=== PATIENT | male | born 1970 | race Caucasian/White ===

== ENCOUNTER 2018-11-16 20:14 | Emergency (ER) | payer BC, SELFPAY ==
[2018-11-16] MEDS ORDERED: IBUPROFEN 400 MG TAB ONE (20:35)
[2018-11-16] MEDS ORDERED: HYDROCODONE/APAP 5/325 MG TAB ONE (20:35)
--- NOTE | 2018-11-16 21:33 | ER ---
[facility] Name: Nabil Aleman Age: 48 yrs Sex: Male : 1970 Arrival Date: 11/16/2018 Time: 20:16 Bed 20 Private MD: Diagnosis: Pain in left ankle and joints of left foot Presentation: 11/16 20:21 Presenting complaint: Patient states: Was at grocery store and went to grab item off of 1 shelf, 6 pack of beer fell on top of left foot; increased pain and swelling; unable to bear weight. Transition of care: patient was not received from another setting of care. Onset of symptoms was November 16, 2018 at 15:00. Risk Assessment: Do you want to hurt yourself or someone else? Patient reports no desire to harm self or others. Initial Sepsis Screen: Does the patient meet any 2 criteria? No. Patient's initial sepsis screen is negative. Does the patient have a suspected source of infection? No. Patient's initial sepsis screen is negative. Care prior to arrival: None. 20:21 Method Of Arrival: Wheelchair lp1 20:21 Acuity: SINDI 4 lp1 Historical: - Allergies: 20:24 No Known Allergies; lp1 - Home Meds: 20:24 Albuterol Inhl [Active]; lp1 - PMHx: 20:24 COPD; lp1 - PSHx: 20:24 Hernia repair; lp1 - Immunization history:: Adult Immunizations up to date. - Social history:: Smoking status: Patient uses tobacco products, smokes one-half pack cigarettes per day. - Ebola Screening: : No symptoms or risks identified at this time. Screenin:25 Abuse screen: Denies threats or abuse. Denies injuries from another. Nutritional lp1 screening: No deficits noted. Tuberculosis screening: No symptoms or risk factors identified. Fall Risk None identified. Assessment: 20:35 General: Appears in no apparent distress. comfortable, Behavior is calm, cooperative, aa1 appropriate for age. Pain: Complains of pain in left foot Quality of pain is described as shooting, throbbing, Is continuous, Aggravated by weight bearing. Neuro: Level of Consciousness is awake, alert, obeys commands, Oriented to person, place, time, situation, Moves all extremities. Full function Gait is steady. Cardiovascular: Pulses are 3+ in right dorsalis pedis artery and left dorsalis pedis artery. Respiratory: Airway is patent Respiratory effort is even, unlabored, Respiratory pattern is regular, symmetrical. GI: No signs and/or symptoms were reported involving the gastrointestinal system. : No signs and/or symptoms were reported regarding the genitourinary system. EENT: No signs and/or symptoms were reported regarding the EENT system. Derm: Skin is intact, is healthy with good turgor, Skin is pink, warm \T\ dry. Musculoskeletal: Circulation, motion, and sensation intact. Capillary refill < 3 seconds, Range of motion: intact in all extremities. 21:08 Reassessment: Patient appears in no apparent distress at this time. Patient and/or aa1 family updated on plan of care and expected duration. Pain level reassessed. Patient is alert, oriented x 3, equal unlabored respirations, skin warm/dry/pink. Awaiting x-ray results. 21:59 Reassessment: Patient appears in no apparent distress at this time. Patient is alert, aa1 oriented x 3, equal unlabored respirations, skin warm/dry/pink. Discussed d/c \T\ f/u instructions with pt; denies questions or concerns at this time. Ambulates to lobby with steady gait Patient states symptoms have improved. Vital Signs: 20:23 BP 108 / 71; Pulse 99; Resp 18; Temp 98.1(O); Pulse Ox 95% on R/A; Weight 99.79 kg; lp1 Height 6 ft. 0 in. (182.88 cm); Pain 8/10; 21:08 BP 110 / 70; Pulse 92; Resp 19; Pulse Ox 94% on R/A; Pain 7/10; aa1 21:59 BP 105 / 72; Pulse 94; Resp 18; Temp 98.3; Pulse Ox 95% on R/A; Pain 6/10; aa1 20:23 Body Mass Index 29.84 (99.79 kg, 182.88 cm) lp1 ED Course: 20:16 Patient arrived in ED. ag3 20:17 Faraz Larson MD is Attending Physician. pkl 20:18 Gerardo Ochoa PA is PHCP. cp 20:23 Triage completed. lp1 20:23 Arm band placed on left wrist. lp1 20:25 Patient has correct armband on for positive identification. lp1 20:28 Vianey Acevedo, RN is Primary Nurse. aa1 21:01 XRAY Foot LEFT 3 View In Process Unspecified. EDMS 21:01 XRAY Ankle LEFT 3 view In Process Unspecified. EDMS 21:59 No provider procedures requiring assistance completed. Patient did not have IV access aa1 during this emergency room visit. 21:59 Ortho shoe applied to left foot. aa1 Administered Medications: 20:41 Drug: Ibuprofen 800 mg Route: PO; aa1 21:41 Follow up: Response: No adverse reaction; Pain is decreased aa1 20:42 Drug: HYDROcodone-acetaminophen (5 mg-500 mg) 1 tabs {Note: RASS 0.} Route: PO; aa1 21:41 Follow up: Response: No adverse reaction; Pain is decreased; RASS: Alert and Calm (0) aa1 Outcome: 21:32 Discharge ordered by . cp 21:59 Discharged to home ambulatory, with significant other. aa1 21:59 Condition: good 21:59 Discharge instructions given to patient, significant other, Instructed on discharge instructions, follow up and referral plans. medication usage, Demonstrated understanding of instructions, follow-up care, medications, Prescriptions given X 2. 22:00 Patient left the ED. aa1 Signatures: Dispatcher [employer] EDNC Vianey Acevedo, JUAN RN aa1 Faraz Larson MD MD pkl Pena, Laura, RN RN lp1 Gerardo Ochoa PA PA cp Gomez, Alice ag3
--- NOTE | 2018-11-16 21:33 | EDPHYS ---
Physician Documentation [facility] Name: Nabil Aleman Age: 48 yrs Sex: Male : 1970 Arrival Date: 11/16/2018 Time: 20:16 Bed 20 Private MD: ED Physician Faraz Larson HPI: 11/16 20:25 This 48 yrs old Male presents to ER via Wheelchair with complaints of Foot cp Injury. 20:25 The patient presents with an injury, pain, that is acute. cp 20:25 The complaints affect the anterior aspect of left ankle and dorsum of left foot. cp Context: The problem was sustained at a store, resulted from a direct blow, 6 pack of beer fell from shelf onto ankle and foot, the patient is not able to bear weight, must have assistance. Onset: The symptoms/episode began/occurred today. Associated signs and symptoms: Pertinent negatives numbness, tingling. Historical: - Allergies: 20:24 No Known Allergies; lp1 - Home Meds: 20:24 Albuterol Inhl [Active]; lp1 - PMHx: 20:24 COPD; lp1 - PSHx: 20:24 Hernia repair; lp1 - Immunization history:: Adult Immunizations up to date. - Social history:: Smoking status: Patient uses tobacco products, smokes one-half pack cigarettes per day. - Ebola Screening: : No symptoms or risks identified at this time. ROS: 20:30 Constitutional: Negative for body aches, chills, fever. cp 20:30 Eyes: Negative for injury, pain, redness, and discharge. cp 20:30 Cardiovascular: Negative for chest pain. 20:30 Respiratory: Negative for cough, shortness of breath, wheezing. 20:30 Abdomen/GI: Negative for abdominal pain, nausea, vomiting, and diarrhea. 20:30 MS/extremity: Positive for pain, tenderness, of the dorsum of left foot and anterior aspect of left ankle, Negative for decreased range of motion, deformity, paresthesias. 20:30 All other systems are negative. Exam: 20:40 Constitutional: The patient appears in no acute distress, alert, awake, well developed, cp well nourished. 20:40 Head/Face: Normocephalic, atraumatic. cp 20:40 Musculoskeletal/extremity: Extremities: grossly normal except: noted in the dorsum of left foot and anterior aspect of left ankle: pain, tenderness, mild swelling, Perfusion: the extremity is normally perfused throughout, Sensation intact. 20:40 Skin: intact w/o open wounds. Vital Signs: 20:23 BP 108 / 71; Pulse 99; Resp 18; Temp 98.1(O); Pulse Ox 95% on R/A; Weight 99.79 kg; lp1 Height 6 ft. 0 in. (182.88 cm); Pain 8/10; 21:08 BP 110 / 70; Pulse 92; Resp 19; Pulse Ox 94% on R/A; Pain 7/10; aa1 21:59 BP 105 / 72; Pulse 94; Resp 18; Temp 98.3; Pulse Ox 95% on R/A; Pain 6/10; aa1 20:23 Body Mass Index 29.84 (99.79 kg, 182.88 cm) lp1 MDM: 20:18 Patient medically screened. pkl 20:45 Differential diagnosis: dislocation, closed fracture, contusion. cp 21:25 Test interpretation: by ED physician or midlevel provider: xrays of left ankle negative cp for fracture, xrays of left foot negative for fracture. 21:31 Data reviewed: vital signs, nurses notes, radiologic studies, plain films, and as a cp result, I will discharge patient. 11/16 20:36 Order name: XRAY Foot LEFT 3 View cp 11/16 20:36 Order name: XRAY Ankle LEFT 3 view cp 11/16 21:25 Order name: Post-op shoe; Complete Time: 21:57 cp Administered Medications: 20:41 Drug: Ibuprofen 800 mg Route: PO; aa1 21:41 Follow up: Response: No adverse reaction; Pain is decreased aa1 20:42 Drug: HYDROcodone-acetaminophen (5 mg-500 mg) 1 tabs {Note: RASS 0.} Route: PO; aa1 21:41 Follow up: Response: No adverse reaction; Pain is decreased; RASS: Alert and Calm (0) aa1 Disposition: 23:50 Co-signature as Attending Physician, Faraz Larson MD. pkl Disposition: 11/16/18 21:32 Discharged to Home. Impression: Pain in left ankle and joints of left foot. - Condition is Stable. - Discharge Instructions: Elastic Bandage and RICE, Ankle Pain, Foot Pain. - Prescriptions for Naprosyn 500 mg Oral Tablet - take 1 tablet by ORAL route 2 times per day take with food; 20 tablet. Tramadol 50 mg Oral Tablet - take 1 tablet by ORAL route every 8 hours as needed; 12 tablet. - Medication Reconciliation Form, Thank You Letter, Antibiotic Education, Prescription Opioid Use form. - Follow up: Private Physician; When: 2 - 3 days; Reason: Recheck today's complaints. - Problem is new. - Symptoms have improved. Signatures: Dispatcher [employer] EDVianey Cid RN RN aa1 Faraz Larson MD MD pkl Kathy Ling RN RN lp1 Gerardo Ochoa PA PA cp Corrections: (The following items were deleted from the chart) 21:57 21:25 Crutches ordered. cp aa1 22:00 21:32 11/16/2018 21:32 Discharged to Home. Impression: Pain in left ankle and joints of aa1 left foot. Condition is Stable. Forms are Medication Reconciliation Form, Thank You Letter, Antibiotic Education, Prescription Opioid Use. Follow up: Private Physician; When: 2 - 3 days; Reason: Recheck today's complaints. Problem is new. Symptoms have improved. cp
[2018-11-16 22:49] VITALS: BP 105/72; TEMP 98.3; O2SAT 95
--- NOTE | 2018-11-17 07:42 | RAD REPORT ---
EXAM DESCRIPTION: RAD - Ankle Left 3 View -11/16/2018 9:01 pm CLINICAL HISTORY: Left ankle pain status post injury FINDINGS: No fracture or dislocation is seen.
--- NOTE | 2018-11-17 07:43 | RAD REPORT ---
EXAM DESCRIPTION: RAD - Foot Left 3 View - 11/16/2018 9:01 pm CLINICAL HISTORY: Left Foot pain status post fall FINDINGS: No fracture or dislocation is seen. Moderate plantar calcaneal spur
== END 2018-11-16 22:00 | disposition home or self-care (01) ==
LOC: ER 20:14
DX: M25.572 Pain in left ankle and joints of left foot (principal); J44.9 Chronic obstructive pulmonary disease, unspecified; F17.210 Nicotine dependence, cigarettes, uncomplicated
CPT/HCPCS: 99284

== ENCOUNTER 2020-02-04 10:24 | Emergency (ER) | payer SELFPAY ==
[2020-02-04 11:14] LABS: Absolute Lymphocytes (CBC) 1.3 K/uL (0.7-4.9); Basophils % 0.7 % (0-1.3); Hematocrit 43.4 % (39.6-49.0); Lymphocytes % 21.6 % (15.3-44.8); MPV 8.1 fL (7.6-11.3); RBC Red Blood Cell Count 4.25 M/uL (4.33-5.43)
[2020-02-04] MEDS ORDERED: MORPHINE 4 MG/ML SYR ONE (11:25)
[2020-02-04 11:31] LABS: BUN Blood Urea Nitrogen 9 mg/dL (7-18); Bicarbonate 28 mmol/L (21-32); Glucose Level 108 mg/dL (74-106); NT PRO-BNP 12 pg/mL (<125); Potassium 4.1 mmol/L (3.5-5.1); Sodium Level 138 mmol/L (136-145); Troponin (Emerg Dept Use Only) < 0.02 ng/mL (0.0-0.045)
--- NOTE | 2020-02-04 11:36 | RAD REPORT ---
EXAM DESCRIPTION: RAD - Chest Single View - 02/04/2020 11:25 am CLINICAL HISTORY: Chest pain;Cough Chest pain. COMPARISON: Chest Pa And Lat (2 Views) dated 03/24/2018; Chest Pa And Lat (2 Views) dated 01/22/2017; Chest Single View dated 05/08/2016; Chest Pa And Lat (2 Views) dated 05/07/2016 FINDINGS: Portable technique limits examination quality. The lungs are grossly clear. The heart is normal in size. No displaced fractures. IMPRESSION: No acute intrathoracic process suspected.
--- NOTE | 2020-02-04 12:45 | RAD REPORT ---
EXAM DESCRIPTION: CT - Angio Aorta For Dissection - 02/04/2020 12:34 pm CLINICAL HISTORY: Chest pain radiating to the back. chest pain, HTN COMPARISON: No comparisons TECHNIQUE: CT angiography of the aorta was performed with MIPs. All CT scans are performed using dose optimization technique as appropriate and may include automated exposure control or mA/KV adjustment according to patient size. FINDINGS: A left aortic arch is present with normal branching pattern of the great vessels.No acute aortic finding is seen such as aneurysm, penetrating ulcer or dissection. The celiac axis, SMA, JUANI and renal arteries are patent. No evidence of pulmonary embolism. Lung apices were not included. The visualized portions of the lungs are clear. The liver demonstrates no focal mass or biliary dilatation.The spleen, pancreas, adrenal glands and k idneys are within normal limits for arterial phase imaging. No bowel obstruction, free fluid or abscess.Mild sigmoid diverticulosis without diverticulitis. Kimberlyn l appendix.No pathologic enlarged lymphadenopathy identified. No fracture or worrisome bone lesion seen.Small fat containing left inguinal hernia. IMPRESSION: No acute aortic finding is demonstrated.
[2020-02-04] MEDS ORDERED: MEPERIDINE HCL 50 MG/ML ONE (12:46)
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
--- NOTE | 2020-02-04 12:59 | ER ---
Nurse's Notes [facility] Name: Nabil Aleman Age: 49 yrs Sex: Male : 1970 Arrival Date: 02/04/2020 Time: 10: Bed 8 Private MD: Diagnosis: Chest pain, unspecified Presentation: 02/03 10:27 Chief complaint: Left-sided chest pain and left subscapular pain that began 2 weeks aa5 ago. Pt also reports productive cough and chills. Pt also states "my blood pressure has also been running high like around 149/99 for the last week". 10:27 Coronavirus screen: chills, cough unrelated to allergies, Client presents with at least aa5 one sign or symptom that may indicate coronavirus-19. Standard/surgical mask placed on the client. Provider contacted for isolation considerations. Ebola Screen: Patient negative for fever greater than or equal to 101.5 degrees Fahrenheit, and additional compatible Ebola Virus Disease symptoms. Initial Sepsis Screen: Does the patient meet any 2 criteria? No. Patient's initial sepsis screen is negative. Does the patient have a suspected source of infection? Yes: Productive cough/pneumonia. Risk Assessment: Do you want to hurt yourself or someone else? Patient reports no desire to harm self or others. Onset of symptoms was 2019. 10:27 Acuity: SINDI 3 aa5 10:27 Method Of Arrival: Ambulatory aa5 Historical: - Allergies: 10:43 No Known Allergies; aa5 - Home Meds: 10:43 Albuterol Inhl [Active]; aspirin 81 mg Oral chew 1 tab once daily [Active]; montelukast aa5 10 mg oral tab once daily [Active]; 10:43 Trelegy [Active]; aa5 - PMHx: 10:43 COPD; aa5 - PSHx: 10:43 Hernia repair; aa5 - Immunization history:: Flu vaccine is not up to date. - Social history:: Smoking status: Patient reports the use of cigarette tobacco products, smokes one-half pack cigarettes per day. - Family history:: not pertinent. - Hospitalizations: : No recent hospitalization is reported. Screenin:07 Abuse screen: Denies threats or abuse. Nutritional screening: No deficits noted. aa5 Tuberculosis screening: No symptoms or risk factors identified. Fall Risk None identified. Assessment: 10:27 General: Appears comfortable, Behavior is calm, cooperative. Pain: Complains of pain in aa5 anterior aspect of left upper chest and subscapular area Pain does not radiate. Pain currently is 8 out of 10 on a pain scale. Quality of pain is described as sharp, Pain began 2 weeks ago Is intermittent, Aggravated by coughing. Neuro: Level of Consciousness is awake, alert, obeys commands, Oriented to person, place, time, situation. Cardiovascular: Heart tones S1 S2 present Rhythm is sinus rhythm. Respiratory: Reports cough that is productive, Airway is patent Respiratory effort is even, unlabored, Respiratory pattern is regular, symmetrical, Breath sounds are clear bilaterally. GI: Abdomen is round non-distended. : No signs and/or symptoms were reported regarding the genitourinary system. EENT: No signs and/or symptoms were reported regarding the EENT system. Derm: Skin is pink, warm \\T\\ dry. Musculoskeletal: Range of motion: intact in all extremities. 10:34 Reassessment: Ok by Gerardo WAGNER to get an EKG. sv 11:18 Reassessment: Patient is alert, oriented x 3, equal unlabored respirations, skin aa5 warm/dry/pink. x-ray at bedside . 12:25 Reassessment: Patient is alert, oriented x 3, equal unlabored respirations, skin aa5 warm/dry/pink. Patient states symptoms have not improved. MD notified of unchanged pain level. . 12:42 Reassessment: Patient is alert, oriented x 3, equal unlabored respirations, skin aa5 warm/dry/pink. Pt back from CT scan. . 12:48 Reassessment: MD at bedside. aa5 13:30 Reassessment: Patient is alert, oriented x 3, equal unlabored respirations, skin aa5 warm/dry/pink. Patient states feeling better. Vital Signs: 10:29 BP 145 / 94; Pulse 85; Resp 18 S; Temp 98.1(O); Pulse Ox 96% on R/A; Weight 99.79 kg aa5 (R); Height 6 ft. 0 in. (182.88 cm) (R); Pain 8/10; 11:00 BP 140 / 93; Pulse 83; Resp 16; Pulse Ox 97% on R/A; vg1 11:33 BP 128 / 101; Pulse 86; Resp 14; Pulse Ox 95% on R/A; vg1 12:43 BP 132 / 98; Pulse 81; Resp 18 S; Pulse Ox 99% on R/A; aa5 10:29 Body Mass Index 29.84 (99.79 kg, 182.88 cm) aa5 ED Course: 10:26 Patient arrived in ED. mr 10:27 Arm band placed on Patient placed in an exam room, on a stretcher. aa5 10:27 Patient has correct armband on for positive identification. Placed in gown. Bed in low aa5 position. Call light in reach. Side rails up X2. library monitor on. Pulse ox on. NIBP on. 10:35 EKG done, by ED staff, reviewed by Deonte Fang MD. sv 10:37 Deonte Fang MD is Attending Physician. rn 10:38 Lynn Montalvo RN is Primary Nurse. aa5 10:41 Triage completed. aa5 10:55 COVID swab sent to lab. Flu and/or RSV swab sent to lab. aa5 10:55 Inserted saline lock: 20 gauge in right antecubital area, using aseptic technique. vg1 Blood collected. 11:03 Initial lab(s) drawn, by me, sent to lab. vg1 11:08 No provider procedures requiring assistance completed. Patient maintains SpO2 aa5 saturation greater than 95% on room air. 11:24 Lab(s) recollected, by me, sent to lab. aa5 11:26 XRAY Chest (1 view) In Process Unspecified. EDMS 12:17 COVID-19 Sent. dh3 12:17 Flu Sent. dh3 12:34 CT Aorta for Dissection In Process Unspecified. EDMS 13:30 IV discontinued, intact, bleeding controlled, No redness/swelling at site. Pressure aa5 dressing applied. Administered Medications: 11:14 Drug: morphine 4 mg Route: IVP; Site: right antecubital; aa5 11:20 Follow up: Response: No adverse reaction aa5 12:43 Drug: Demerol 50 mg Route: IVP; Site: right antecubital; aa5 Outcome: 12:58 Discharge ordered by MD. rn 13:30 Discharged to home ambulatory, with significant other. aa5 13:30 Condition: stable 13:30 Discharge instructions given to patient, Instructed on discharge instructions, follow up and referral plans. Demonstrated understanding of instructions, follow-up care. 13:32 Patient left the ED. em Addendum: 02/06/2020 16:29 Addendum: COVID-19 Result: Negative result given to RN to notify pt. Attempted to i w contact pt regarding negative COVID-19 swab results. Unable to leave voice mail due to the number provided was either not a working number, the voice mail has not been set up, or the voice mailbox is full.. Signatures: Dispatcher [employer] Gretchen Seymour, RN RN judith Tiffanie Duque, Rebel, RN RN Karen Ag, RN Deonte Carlos MD MD rn Calderon, Audri, RN RN aa5 [facility] Shantal Crews RN RN vg1 Corrections: (The following items were deleted from the chart) 02/03 10:40 10:36 EKG done, by ED staff, reviewed by Deonte Fang MD aa5 11:07 10:27 Chief complaint: Left-sided chest pain and left subscapular pain that began 2 aa5 weeks ago. Pt also reports productive cough and chills. aa5 12:45 12:34 Reassessment: Patient is alert, oriented x 3, equal unlabored respirations, skin aa5 warm/dry/pink. Pt back from CT scan. . aa5
[2020-02-04 17:24] VITALS: TEMP 98.1
[2020-02-04 17:29] VITALS: BP 132/98; O2SAT 99
== END 2020-02-04 13:32 | disposition home or self-care (01) ==
LOC: ER 10:24
DX: R07.9 Chest pain, unspecified (principal); J44.9 Chronic obstructive pulmonary disease, unspecified; F17.210 Nicotine dependence, cigarettes, uncomplicated; Z79.82 Long term (current) use of aspirin
CPT/HCPCS: 36415; 71045; 71275; 74175; 80048; 83735; 83880; 84145; 84484; 85025; 85379; 87804; 93005; 96374; 96375; 99285; J2175; Q9967; U0002

== ENCOUNTER 2023-03-07 19:24 | Emergency (ER) | payer OTHER ==
[2023-03-07 20:21] LABS: SARS-CoV-2 Antigen Rapid Res Negative (Negative)
[2023-03-07 21:13] LABS: Absolute Lymphocytes (CBC) 1.1 K/uL (0.7-4.9); Hematocrit 43.2 % (39.6-49.0); Lymphocytes % 17.6 % (15.3-44.8); MCV 98.3 fL (80-100); MPV 8.8 fL (7.6-11.3); Platelets 197 thou/uL (152-406)
[2023-03-07] MEDS ORDERED: PROMETHAZINE 25 MG TABLET ONE (21:15)
[2023-03-07] MEDS ORDERED: ALBUTEROL 2.5 MG/3 ML NEB SOL ONE (21:15)
[2023-03-07] MEDS ORDERED: METHYLPREDNISOLONE 125 MG INJ ONE (21:15)
[2023-03-07] MEDS ORDERED: HYDROCODONE/APAP 10/325 TAB ONE (21:15)
[2023-03-07] MEDS ORDERED: IBUPROFEN 400 MG TAB ONE (21:16)
[2023-03-07] MEDS ORDERED: NA CHLORIDE 0.9% 1,000 ML ONE (21:16)
--- NOTE | 2023-03-07 21:18 | RAD REPORT ---
EXAM DESCRIPTION: RAD - Chest Pa And Lat (2 Views) - 03/07/2023 8:40 pm CLINICAL HISTORY: COPD COMPARISON: Chest Single View dated 02/04/2020; Chest Pa And Lat (2 Views) dated 03/24/2018; Chest Pa And Lat (2 Views) dated 01/22/2017; Chest Single View dated 05/08/2016 TECHNIQUE: PA and lateral views of the chest were obtained. FINDINGS: The lungs are clear. Heart size is normal and central vasculature is within normal limits. No pleural effusion or pneumothorax seen. No acute bony finding noted. IMPRESSION: No acute cardiopulmonary process.
[2023-03-07 21:33] LABS: Protime INR 1.07
[2023-03-07 21:37] LABS: Albumin 3.5 g/dL (3.4-5.0); Bilirubin Direct 0.1 mg/dL (0-0.2); Bilirubin Indirect, Calculated 0.3 mg/dL (0.2-0.8); Bilirubin Total 0.4 mg/dL (0.2-1.0); Potassium 3.5 mEq/L (3.5-5.1); Protein, Total 7.3 g/dL (6.4-8.2); Troponin High Sensitivity 4.3 pg/mL (<58.9)
--- NOTE | 2023-03-08 02:16 | ER ---
Nurse's Notes [facility] Name: Nabil Aleman Age: 53 yrs Sex: Male : 1970 Arrival Date: 03/07/2023 Time: 19:24 Bed 11 Private MD: Diagnosis: Acute bronchitis, unspecified;COPD/ Chronic obstructive pulmonary disease with (acute) exacerbation Presentation: 03/07 19:40 Chief complaint: Patient states: COUGH, CHEST PAIN THAT IS WORSE WITH COUGHING AND DEEP cm10 BREATHS, CHILLS AND VOMITING X3 WEEKS. Coronavirus screen: Vaccine status: Patient reports receiving the 2nd dose of the covid vaccine. Client denies travel out of the [place] in the last 14 days. Ebola Screen: Patient denies travel to an Ebola-affected area in the 21 days before illness onset. No symptoms or risks identified at this time. Initial Sepsis Screen: Does the patient meet any 2 criteria? No. Patient's initial sepsis screen is negative. Does the patient have a suspected source of infection? No. Patient's initial sepsis screen is negative. Risk Assessment: Do you want to hurt yourself or someone else? Patient reports no desire to harm self or others. Onset of symptoms was March 07, 2023. 19:40 Method Of Arrival: Ambulatory cm10 19:40 Acuity: SIDNI 3 cm10 Historical: - Allergies: 19:41 No Known Drug Allergies; cm10 - PMHx: 19:41 COPD; cm10 - Immunization history:: Adult Immunizations unknown. - Social history:: Smoking status: Patient reports the use of cigarette tobacco products, smokes one-half pack cigarettes per day. - Family history:: not pertinent. Screenin/25 02:31 [facility] ED Fall Risk Assessment (Adult) Score/Fall Risk Level 0 - 2 = Low Risk. Abuse as6 screen: Denies threats or abuse. Denies injuries from another. Nutritional screening: No deficits noted. Tuberculosis screening: No symptoms or risk factors identified. Assessment: 03/07 20:45 General: Appears in no apparent distress. comfortable, Behavior is calm, cooperative, jb4 appropriate for age. Pain: Complains of pain in chest Pain does not radiate. Pain currently is 8 out of 10 on a pain scale. Neuro: Level of Consciousness is awake, alert, obeys commands, Oriented to person, place, time, situation. Cardiovascular: Patient's skin is warm and dry. Respiratory: Reports cough that is non-productive, persistent Airway is patent Respiratory effort is even, unlabored, Respiratory pattern is regular, symmetrical. GI: No signs and/or symptoms were reported involving the gastrointestinal system. : No signs and/or symptoms were reported regarding the genitourinary system. EENT: No signs and/or symptoms were reported regarding the EENT system. Derm: Skin is intact, Skin is pink, warm \T\ dry. Musculoskeletal: Circulation, motion, and sensation intact. Range of motion:. 21:54 Reassessment: Patient appears in no apparent distress at this time. Patient and/or jb4 family updated on plan of care and expected duration. Pain level reassessed. Patient is alert, oriented x 3, equal unlabored respirations, skin warm/dry/pink. Vital Signs: 19:40 BP 134 / 87; Pulse 91; Resp 18; Temp 98.6; Pulse Ox 95% on R/A; Weight 99.79 kg; Height cm10 6 ft. 0 in. ; Pain 7/10; 21:54 BP 129 / 91; Pulse 89; Resp 16; Pulse Ox 98% on R/A; jb4 03/08 02:31 BP 116 / 83; Pulse 81; Resp 18 S; Pulse Ox 95% on R/A; as6 03/07 19:40 Body Mass Index 29.84 (99.79 kg, 182.88 cm) cm10 03/07 19:40 Pain Scale: Adult cm10 ED Course: 03/07 19:27 Patient arrived in ED. jj6 19:32 Jamar Gamboa MD is Attending Physician. sp4 19:41 Triage completed. cm10 19:41 Arm band placed on Patient placed in waiting room. cm10 19:47 Influenza Screen (a \T\ B) Sent. cm10 19:47 SARS RAPID Sent. cm10 20:42 Chest Pa And Lat (2 Views) XRAY In Process Unspecified. EDMS 21:03 PT-INR Sent. jb4 21:03 Troponin HS Sent. jb4 21:03 NT PRO-BNP Sent. jb4 21:03 Magnesium Sent. jb4 21:03 LFT's Sent. jb4 21:03 CBC with Diff Sent. jb4 21:03 Basic Metabolic Panel Sent. jb4 21:25 Juan C Leo, RN is Primary Nurse. jb4 23:23 CT Chest Abdomen W/ Contrast In Process Unspecified. EDMS 03/08 02:15 Zachary Andrews MD is Referral Physician. sp4 02:31 Bed in low position. Call light in reach. Side rails up X 1. Provided Education on: as6 follow up, rx teaching. 02:31 No provider procedures requiring assistance completed. IV discontinued, intact, as6 bleeding controlled, No redness/swelling at site. Pressure dressing applied. Administered Medications: 03/07 21: Drug: NS 0.9% IV 1000 ml IV at 1 bolus Per protocol; 1000 mL bolus Route: IV; Rate: 1 jb4 bolus; Site: right antecubital; 03/08 02:30 Follow up: Response: No adverse reaction; IV Status: Completed infusion; IV Intake: as6 1000ml 03/07 21: Drug: Albuterol Inhalation 2.5 mg Inhalation once Route: Inhalation; jb4 03/08 02:30 Follow up: Response: No adverse reaction as6 03/07 21:26 Drug: MethylPrednisoLONE IVP 125 mg IVP once Route: IVP; Site: right antecubital; jb4 03/08 02:30 Follow up: Response: No adverse reaction as6 03/07 21: Drug: [place] PO 10 mg-325 mg 1 tabs PO once Route: PO; 4 03/08 02:30 Follow up: Response: No adverse reaction as6 03/07 21: Drug: Promethazine PO 25 mg PO once Route: PO; 4 03/08 02:30 Follow up: Response: No adverse reaction as6 03/07 21:27 Drug: Ibuprofen PO 800 mg PO once Route: PO; 4 03/08 02:30 Follow up: Response: No adverse reaction as6 Medication: 02:32 VIS not applicable for this client. as6 Intake: 02:30 IV: 1000ml; Total: 1000ml. as6 Outcome: 02:15 Discharge ordered by . sp4 02:31 Discharged to home ambulatory, with significant other, as6 02:31 Condition: stable 02:31 Discharge instructions given to patient, 02:32 Patient left the ED. as6 Signatures: Dispatcher [employer] EDGA Juan C Leo RN RN jb4 Latesha Collinsj6 Masoud Layton, JUAN RN as6 Jamar Gamboa MD MD sp4 Ashley Melendrez RN RN cm10
--- NOTE | 2023-03-08 02:16 | EDPHYS ---
Physician Documentation [facility] Name: Nabil Aleman Age: 53 yrs Sex: Male : 1970 Arrival Date: 03/07/2023 Time: 19:24 Bed 11 Private MD: ED Physician Jamar Gamboa HPI: 03/07 19:32 This 53 yrs old Male presents to ER via Unassigned with complaints of Flu sp4 Symptoms. 20:32 Very pleasant 53-year-old male presents with acute onset of pain, fevers cough sp4 generalized weakness, and all symptoms starting 3 weeks ago. Patient reports fevers chills, generalized weakness pleuritic chest pains, and swollen glands under the right armpit. Patient states he has history of COPD, he is on albuterol, Trelegy, and nebulized albuterol. Patient smokes half a pack a day. . Historical: - Allergies: 19:41 No Known Drug Allergies; cm10 - PMHx: 19:41 COPD; cm10 - Immunization history:: Adult Immunizations unknown. - Social history:: Smoking status: Patient reports the use of cigarette tobacco products, smokes one-half pack cigarettes per day. - Family history:: not pertinent. ROS: 20:33 Constitutional: Positive chills, positive subjective fever, positive pleuritic chest sp4 pain, positive lymphadenopathy, positive generalized weakness, positive fatigue. 20:33 All other systems are negative, Exam: 20:33 Constitutional: This is a well developed, well nourished patient who is awake, alert, sp4 comfortable appearing male, persistent cough, nontoxic-appearing. Head/Face: Normocephalic, atraumatic. Eyes: Pupils equal round and reactive to light, extra-ocular motions intact. Lids and lashes normal. Conjunctiva and sclera are not injected. Cornea within normal limits. Periorbital areas with no swelling, redness, or edema. ENT: Nares patent. No nasal discharge, no septal abnormalities noted. Tympanic membranes are normal and external auditory canals are clear. Oropharynx with no redness, swelling, or masses, exudates, or evidence of obstruction, uvula midline. Mucous membranes moist. Neck: Trachea midline, no thyromegaly or masses palpated, and no cervical lymphadenopathy. Supple, full range of motion without nuchal rigidity, or vertebral point tenderness. Chest/axilla: Normal chest wall appearance and motion. Nontender with no deformity. No lesions are appreciated. Cardiovascular: Regular rate and rhythm with a normal S1 and S2. No gallops, murmurs, or rubs. Normal PMI, no JVD. No pulse deficits. Respiratory: Lungs have equal breath sounds bilaterally, clear to auscultation and percussion. No rales, rhonchi or wheezes noted. No increased work of breathing, no retractions or nasal flaring. Abdomen/GI: Soft, non-tender, with normal bowel sounds. No distension or tympany. No guarding or rebound. No evidence of tenderness throughout. Back: No spinal tenderness. No costovertebral tenderness. Skin: Warm, dry with normal turgor. Normal color with no rashes, no lesions, and no evidence of cellulitis. MS/ Extremity: Pulses equal, no cyanosis. Neurovascular intact. Full, normal range of motion. Neuro: Awake and alert, GCS 15, oriented to person, place, time, and situation. Cranial nerves II-XII grossly intact. Motor strength 5/5 in all extremities. Sensory grossly intact. Psych: Awake, alert, with orientation to person, place and time. Behavior, mood, and affect are within normal limits 03/08 02:14 ECG was reviewed by the Attending Physician. EKG normal, 2111 normal sinus rhythm at sp4 a rate 86 Vital Signs: 03/07 19:40 BP 134 / 87; Pulse 91; Resp 18; Temp 98.6; Pulse Ox 95% on R/A; Weight 99.79 kg; Height cm10 6 ft. 0 in. ; Pain 7/10; 21:54 BP 129 / 91; Pulse 89; Resp 16; Pulse Ox 98% on R/A; jb4 03/08 02:31 BP 116 / 83; Pulse 81; Resp 18 S; Pulse Ox 95% on R/A; as6 03/07 19:40 Body Mass Index 29.84 (99.79 kg, 182.88 cm) cm10 03/07 19:40 Pain Scale: Adult cm10 MDM: 03/07 19:33 Patient medically screened. sp4 23:49 ED course: Review of prior CT - EXAM DESCRIPTION: CT - Lung Cancer Screening CT W/O - sp4 01/08/2023 4:09 pm CLINICAL HISTORY: smokes 1 pack every 3-4 days for the past 35 years TECHNIQUE: Non-contrast Low-Dose Chest CT with Sagittal and Coronal reformations.All CT scans are performed using dose optimizationtechnique as appropriate and may include automated exposure control or mA/KV adjustment according to patient size. COMPARISON: No comparisons FINDINGS: 3 millimeter nodule right lower lobe. 3 millimeter nodule right lower lobe abuts fissure. 3 millimeter right middle lobe nodule 2 millimeter left lower lobe nodule No pleural effusion. No pericardial effusion. No mediastinal or hilar lymphadenopathy IMPRESSION: Several small lung nodules probably benign. ED course: Chest X ray - EXAM DESCRIPTION: RAD - Chest Pa And Lat (2 Views) - 03/07/2023 8:40 pm CLINICAL HISTORY: COPD COMPARISON: Chest Single View dated 02/04/2020; Chest Pa And Lat (2 Views) dated 03/24/2018; Chest Pa And Lat (2 Views) dated 01/22/2017; Chest Single View dated 05/08/2016 TECHNIQUE: PA and lateral views of the chest were obtained. FINDINGS: The lungs are clear. Heart size is normal and central vasculature is within normal limits. No pleural effusion or pneumothorax seen. No acute bony finding noted. IMPRESSION: No acute cardiopulmonary process. . 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 MIPS sp4 reconstructions were generated. This exam was performed according to our departmental dose-optimization program, which includes automated exposure control, adjustment of the mA and/or kV according to patient size and/or use of iterative reconstruction technique. FINDINGS: Vascular: Thoracic aorta is normal in course and caliber without aneurysm or dissection. Pulmonary arteries are adequately opacified without acute or chronic filling defects. Abdominal aorta is normal in course and caliber without aneurysm. Pelvic arteries are patent without aneurysm or occlusion. Chest: The heart is normal in size. There is no pericardial effusion. Intrathoracic lymph nodes are not enlarged. There is no pleural effusion, pleural thickening or pneumothorax. Central airways are patent. There are at least 5 pulmonary nodules scattered throughout both lungs the largest in the posterior right upper lobe measuring 6 mm. Abdomen: The liver is normal in appearance. There is no biliary dilatation. The gallbladder is normal in appearance. The pancreas and spleen are normal in appearance. The adrenal glands and kidneys are unremarkable. There is no free air. There is no retroperitoneal adenopathy.Appendix is normal. Skeleton: There are no acute osseous findings. No suspicious bony lesions. IMPRESSION: No suspicious adenopathy. Multiple pulmonary nodules. Most significant: 6 mm right solid pulmonary nodule within the upper lobe. Per Fleischner Society Guidelines, recommend a non-contrast Chest CT at 3-6 months, then consider another non-contrast Chest CT at 18-24 months. If patient is low risk for malignancy, non-contrast Chest CT at 18-24 months is optional. . 02:14 Differential Diagnosis altered mental status, sepsis, flu. Data reviewed: vital signs, sp4 nurses notes, old medical records, lab test result(s), EKG, radiologic studies, CT scan, plain films. 02:17 Consideration of Admission/Observation Escalation of care including sp4 admission/observation considered. 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 Patient was also advised to quit smoking. . 03/07 19:33 Order name: SARS RAPID; Complete Time: 23:44 sp4 03/07 19:33 Order name: Influenza Screen (a \T\ B); Complete Time: 23:44 sp4 03/07 20:30 Order name: Basic Metabolic Panel; Complete Time: 23:44 sp4 03/07 20:30 Order name: CBC with Diff; Complete Time: 23:44 sp4 03/07 20:30 Order name: LFT's; Complete Time: 23:44 sp4 03/07 20:30 Order name: Magnesium; Complete Time: 23:44 sp4 03/07 20:30 Order name: NT PRO-BNP; Complete Time: 23:44 sp4 03/07 20:30 Order name: PT-INR; Complete Time: 23:44 sp4 03/07 20:30 Order name: Troponin HS; Complete Time: 23:44 sp4 03/07 19:45 Order name: Chest Pa And Lat (2 Views) XRAY; Complete Time: 23:44 cm10 03/07 20:31 Order name: CT Chest Abdomen W/ Contrast 4 03/07 20:30 Order name: EKG; Complete Time: 20:31 sp4 03/07 20:30 Order name: Cardiac monitoring; Complete Time: 21:27 sp4 03/07 20:30 Order name: EKG - Nurse/Tech; Complete Time: : sp4 03/07 20:30 Order name: IV Saline Lock; Complete Time: : sp4 03/07 20:30 Order name: Labs collected and sent; Complete Time: : sp4 03/07 20:30 Order name: O2 Per Protocol; Complete Time: : sp4 03/07 20:30 Order name: O2 Sat Monitoring; Complete Time: : sp4 EC:14 Rate is 86 beats/min. Rhythm is regular, Normal Sinus Rhythm. QRS [place] is Normal. DC sp4 interval is normal. QRS interval is normal. QT interval is normal. No Q waves. T waves are Normal. No ST changes noted. Clinical impression: Normal ECG. Interpreted by me. Reviewed by me. Administered Medications: 03/07 21: Drug: NS 0.9% IV 1000 ml IV at 1 bolus Per protocol; 1000 mL bolus Route: IV; Rate: 1 jb4 bolus; Site: right antecubital; 03/08 02:30 Follow up: Response: No adverse reaction; IV Status: Completed infusion; IV Intake: as6 1000ml 03/07 21: Drug: Albuterol Inhalation 2.5 mg Inhalation once Route: Inhalation; 03/08 02:30 Follow up: Response: No adverse reaction 03/07: Drug: MethylPrednisoLONE IVP 125 mg IVP once Route: IVP; Site: right antecubital; 03/08 02:30 Follow up: Response: No adverse reaction 03/07: Drug: [place] PO 10 mg-325 mg 1 tabs PO once Route: PO; 03/08 02:30 Follow up: Response: No adverse reaction 03/07: Drug: Promethazine PO 25 mg PO once Route: PO; 03/08 02:30 Follow up: Response: No adverse reaction 03/07: Drug: Ibuprofen PO 800 mg PO once Route: PO; 03/08 02:30 Follow up: Response: No adverse reaction as6 Disposition Summary: 03/08/23 02:15 Discharge Ordered Notes: Location: Home sp4 Problem: new sp4 Symptoms: have improved sp4 Condition: Stable sp4 Diagnosis - Acute bronchitis, unspecified sp4 - COPD/ Chronic obstructive pulmonary disease with (acute) exacerbation sp4 Followup: sp4 - With: Zachary Andrews MD - When: 7 - 10 days - Reason: Recheck today's complaints Discharge Instructions: - Discharge Summary Sheet sp4 - Acute Bronchitis, Adult sp4 Forms: - Patient Portal Instructions sp4 Prescriptions: - dextromethorphan-guaifenesin 10-200 mg Oral capsule - take 2 capsule ORAL route every 6 hours PRN cough; 60 capsule; Refills: 0, sp4 Product Selection Permitted - Zithromax Z-Neal 250 mg Oral Tablet - take 1 tablet ORAL route as directed for 5 days Day 1 - take two (2) tablets sp4 one time. Day 2, 3, 4 , 5 take one (1) tablet once daily.; 6 tablet; Refills: 0, Product Selection Permitted - Prednisone 20 mg Oral Tablet - take 2 tablets ORAL route once daily for 5 days; 10 tablet; Refills: 0, Product sp4 Selection Permitted Signatures: Dispatcher [employer] Juan C Guerra, RN RN jb4 Jamar Gamboa MD MD sp4 Ashley Melendrez RN RN cm10 Masoud Layton RN as6
[2023-03-08 04:06] VITALS: TEMP 98.6; O2SAT 95
[2023-03-08 04:12] VITALS: BP 116/83
--- NOTE | 2023-03-08 15:34 | RAD REPORT ---
EXAM DESCRIPTION: CT - Chest Abdomen W Con - 03/08/2023 8:59 am CLINICAL HISTORY: Lymphadenopathy COMPARISON: None. TECHNIQUE: CT CHEST ABDOMEN WITH IV CONTRAST on 03/07/2023 8:31 PM INSPECTOR WEIGHTS AND MEASURES. MIPS reconstructions were [id number]. This exam was performed according to our departmental dose-optimization program, which includes autom ated exposure control, adjustment of the mA and/or kV according to patient size and/or use of iterati ve reconstruction technique. FINDINGS: Vascular: Thoracic aorta is normal in course and caliber without aneurysm or dissection. P ulmonary arteries are adequately opacified without acute or chronic filling defects. Abdominal aorta is normal in course and caliber without aneurysm. Pelvic arteries are patent without aneurysm or occl usion. Chest: The heart is normal in size. There is no pericardial effusion. Intrathoracic lymph nodes are n ot enlarged. There is no pleural effusion, pleural thickening or pneumothorax. Central airways are patent. There a re at least 5 pulmonary nodules scattered throughout both lungs the largest in the posterior right up per lobe measuring 6 mm. Abdomen: The liver is normal in appearance. There is no biliary dilatation. The gallbladder is normal in appearance. The pancreas and spleen are normal in appearance. The adrenal glands and kidneys are unremarkable. There is no free air. There is no retroperitoneal adenopathy.Appendix is normal. Skeleton: There are no acute osseous findings. No suspicious bony lesions. IMPRESSION: No suspicious adenopathy. Multiple pulmonary nodules. Most significant: 6 mm right solid pulmonary nodule within the upper lobe . Per Fleischner Society Guidelines, recommend a non-contrast Chest CT at 3-6 months, then consider a nother non-contrast Chest CT at 18-24 months. If patient is low risk for malignancy, non-contrast [place] st CT at 18-24 months is optional. These guidelines do not apply to immunocompromised patients and patients with cancer. Follow up in pa tients with significant comorbidities as clinically warranted. For lung cancer screening, adhere to L viv-RADS guidelines. Reference: Radiology. 2017; 284(1):228-43. Electronically signed by: Rudy Bolden MD 03/08/2023 01:27 AM INSPECTOR WEIGHTS AND MEASURES Due to temporary technical issues with the PACS/Fluency reporting system, reports are being signed by the in house radiologists without review as a courtesy to insure prompt reporting. The interpreting radiologist is fully responsible for the content of the report.
--- NOTE | 2023-03-11 13:32 | EKG ---
Test Date: 2023-03-07 Test Time: 21:11:02 Slab Tripper: NAEL MEASUREMENT RESULTS: Intervals: Rate: 86 AL: 132 QRSD: 104 QT: 366 QTc: 437 [place]: P: 83 AL: 132 QRS: 83 T: 72 INTERPRETIVE STATEMENTS: Normal sinus rhythm Normal ECG Compared to ECG 02/04/2020 10:35:19 No significant changes Electronically Signed On 03-11-23 13:24:58 TRACTION POWER ENGINEER by Herbert Mccarty
== END 2023-03-08 02:32 | disposition home or self-care (01) ==
LOC: ER 19:24
DX: J44.1 Chronic obstructive pulmonary disease with (acute) exacerbation (principal); J44.0 Chronic obstructive pulmonary disease with (acute) lower respiratory infection; F17.210 Nicotine dependence, cigarettes, uncomplicated; Z11.52 Encounter for screening for COVID-19
CPT/HCPCS: 96361; 93005; 85025; 80048; 36415; 83735; 85610; 80076; 84484; 83880; 87804 ×2; 74160; 71260; 71046; 96374; 99285; 87811; Q9967; Q0169; J7613; J2930; J7030

== ENCOUNTER → 2023-03-27 | Emergency (ER) | payer OTHER ==
[~2023-03-27] MED LIST: ACETAMINOPHEN 500 MG TAB ONE
--- NOTE | 2023-03-27 13:09 | RAD REPORT ---
EXAM DESCRIPTION: RAD - Chest Single View - 03/27/2023 1:03 pm CLINICAL HISTORY: Cough;Congestion Chest pain. COMPARISON: <Comparisons> FINDINGS: Portable technique limits examination quality. The lungs are grossly clear. The heart is normal in size. No displaced fractures. IMPRESSION: No acute intrathoracic process suspected.
--- NOTE | 2023-03-27 14:49 | EDPHYS ---
Physician Documentation [facility] Name: Nabil Aleman Age: 53 yrs Sex: Male : 1970 Arrival Date: 03/27/2023 Time: 11:34 Bed DX5 Private MD: ED Physician Gerardo Santillan HPI: 03/27 14:59 This 53 yrs old Male presents to ER via Ambulatory with complaints of Chest Congestion, kb Shortness Of Breath, Cough. 14:59 Patient is a 53-year-old male who presents for cough, congestion, shortness of breath, kb body aches, fever, chills, headache that started 3 days ago. Spouse has similar symptoms. Denies nausea, vomiting, diarrhea. Historical: - Allergies: 12:09 No Known Allergies; nj1 - PMHx: 12:09 COPD; nj1 - Immunization history:: Client reports receiving the 2nd dose of the Covid vaccine. - Social history:: Smoking status: Patient/guardian denies using tobacco, Stopped _ months ago .25. ROS: 14:59 Abdomen/GI: Negative for abdominal pain, nausea, vomiting, diarrhea, and constipation, kb 14:59 Constitutional: Positive for body aches, chills, fatigue, fever, malaise, 14:59 ENT: Positive for rhinorrhea, sinus congestion, 14:59 Respiratory: Positive for cough, shortness of breath, 14:59 Neuro: Positive for headache, 14:59 All other systems are negative, Exam: 14:59 Constitutional: This is a well developed, well nourished patient who is awake, alert, kb and in no acute distress. Head/Face: Normocephalic, atraumatic. ENT: Moist Mucous membranes Cardiovascular: Regular rate Respiratory: Respirations even and unlabored. No increased work of breathing. Talking in full sentences Skin: Warm, dry with normal turgor. Normal color. MS/ Extremity: Pulses equal, no cyanosis. Neurovascular intact. Full, normal range of motion. Neuro: Awake and alert, GCS 15, oriented to person, place, time, and situation. Moves all extremities. Normal gait. Vital Signs: 12:05 BP 139 / 89; Pulse 102; Resp 18; Temp 101.1(TE); Pulse Ox 92% on R/A; Weight 99.79 kg; nj1 Height 6 ft. 0 in. ; Pain 10/10; 14:53 BP 123 / 83; Pulse 93; Resp 18; Temp 98.2(O); Pulse Ox 94% on R/A; Pain 8/10; hb 12:05 Body Mass Index 29.84 (99.79 kg, 182.88 cm) nj1 12:05 Pain Scale: Adult nj1 14:53 Pain Scale: Adult hb MDM: 11:38 Patient medically screened. kb 14:59 Differential Diagnosis: Other Flu, COVID, pneumonia, URI. Data reviewed: vital signs, kb nurses notes. Counseling: I had a detailed discussion with the patient and/or guardian regarding the historical points, exam findings, and any diagnostic results supporting the discharge/admit diagnosis, lab results, radiology results, the need for outpatient follow up, a family practitioner, to return to the emergency department if symptoms worsen or persist or if there are any questions or concerns that arise at home. 03/27 12:05 Order name: Flu; Complete Time: 12:53 kb 03/27 12:05 Order name: SARS-COV-2 RT PCR; Complete Time: 13:04 kb 03/27 12:05 Order name: Chest Single View XRAY; Complete Time: 13:15 kb Administered Medications: 12:14 Drug: Acetaminophen PO 1000 mg PO once Route: PO; nj1 Disposition Summary: 03/27/23 14:49 Discharge Ordered Notes: Location: Home kb Condition: Stable kb Diagnosis - Acute upper respiratory infection, unspecified kb Followup: kb - With: Emergency Department - When: As needed - Reason: Worsening of condition Followup: kb - With: Private Physician - When: 2 - 3 days - Reason: Recheck today's complaints, Continuance of care, Re-evaluation by your physician Discharge Instructions: - Discharge Summary Sheet kb - Upper Respiratory Infection, Adult, [id number] kb - Viral Respiratory Infection, [id number] kb Forms: - Work release form kb - Medication Reconciliation Form kb - Thank You Letter kb - Antibiotic Education kb - Prescription Opioid Use kb - Patient Portal Instructions kb - Leadership Thank You Letter kb Signatures: Dispatcher [employer] Shawnee Nevarez, Kimberlyn Rodriguez, RN RN nj1
--- NOTE | 2023-03-27 14:49 | ER ---
Nurse's Notes [facility] Name: Nabil Aleman Age: 53 yrs Sex: Male : 1970 Arrival Date: 03/27/2023 Time: 11:34 Bed DX5 Private MD: Diagnosis: Acute upper respiratory infection, unspecified Presentation: 03/27 12:05 Chief complaint: Patient states: cough, shortness of breath, congestion, headache chest nj1 pains since Wednesday. fever 101 today. Coronavirus screen: Vaccine status: Patient reports receiving the 2nd dose of the covid vaccine. Ebola Screen: Patient denies travel to an Ebola-affected area in the 21 days before illness onset. Initial Sepsis Screen: Does the patient meet any 2 criteria? Temp <36.0*C (96.8*F)) or > 38.3*C (100.9*F). HR > 90 bpm. Yes. Risk Assessment: Do you want to hurt yourself or someone else? Patient reports no desire to harm self or others. Onset of symptoms was March 24, 2023. 12:05 Method Of Arrival: Ambulatory [facility] 12:05 Acuity: SINDI 3 nj1 Historical: - Allergies: 12:09 No Known Allergies; nj1 - PMHx: 12:09 COPD; nj1 - Immunization history:: Client reports receiving the 2nd dose of the Covid vaccine. - Social history:: Smoking status: Patient/guardian denies using tobacco, Stopped _ months ago .25. Screenin:54 [facility] ED Fall Risk Assessment (Adult) Score/Fall Risk Level 0 - 2 = Low Risk hb Oriented to surroundings, Maintained a safe environment, Educated pt \T\ family on fall prevention, incl call for assistance when getting out of bed. Abuse screen: Denies threats or abuse. Denies injuries from another. Nutritional screening: No deficits noted. Tuberculosis screening: No symptoms or risk factors identified. Assessment: 14:54 Reassessment: Patient appears in no apparent distress at this time. No changes from hb previously documented assessment. Patient and/or family updated on plan of care and expected duration. Pain level reassessed. Patient is alert, oriented x 3, equal unlabored respirations, skin warm/dry/pink. Vital Signs: 12:05 BP 139 / 89; Pulse 102; Resp 18; Temp 101.1(TE); Pulse Ox 92% on R/A; Weight 99.79 kg; nj1 Height 6 ft. 0 in. ; Pain 10/10; 14:53 BP 123 / 83; Pulse 93; Resp 18; Temp 98.2(O); Pulse Ox 94% on R/A; Pain 8/10; hb 12:05 Body Mass Index 29.84 (99.79 kg, 182.88 cm) nj1 12:05 Pain Scale: Adult nj1 14:53 Pain Scale: Adult hb ED Course: 11:37 Patient arrived in ED. ts1 11:38 Shawnee Allison FNP-C is PHCP. kb 11:38 Gerardo Santillan MD is Attending Physician. kb 12:09 Triage completed. nj1 12:09 Arm band placed on right wrist. nj1 12:10 Notified Nurse Practitioner and/or Physician Butane Compressor Operator of Pt requesting IV fluids. nj1 13:04 Chest Single View XRAY In Process Unspecified. EDMS Administered Medications: 12:14 Drug: Acetaminophen PO 1000 mg PO once Route: PO; nj1 Outcome: 14:49 Discharge ordered by MD. kb 14:54 Discharged to home ambulatory, with significant other, hb 14:54 Condition: stable 14:54 Discharge instructions given to patient, Instructed on discharge instructions, follow up and referral plans. medication usage, Demonstrated understanding of instructions, follow-up care, medications, 15:07 Patient left the ED. hb Signatures: Dispatcher [employer] EDMS Shawnee Allison FNP-C FNP-Ckb Baxter, Heather, RN RN Kimberlyn Palma RN RN nj1 Paula Garay PAS PAS ts1
[2023-03-27 15:44] VITALS: BP 123/83; TEMP 98.2; O2SAT 94
== END ==
LOC: ER 11:34
DX: J06.9 Acute upper respiratory infection, unspecified (principal); J44.9 Chronic obstructive pulmonary disease, unspecified; Z11.52 Encounter for screening for COVID-19
CPT/HCPCS: 71045; 87635; 87804; 99283

== ENCOUNTER 2023-08-23 14:36 | Emergency (ER) | payer OTHER ==
[2023-08-23] MEDS ORDERED: KETOROLAC 30 MG/ML INJ ONE (15:01)
[2023-08-23 15:13] LABS: Absolute Eosinophils 0.1 K/uL (0-0.5); Absolute Lymphocytes (CBC) 1.8 K/uL (0.7-4.9); Absolute Monocytes 0.5 K/uL (0.1-1.3); Absolute Neutrophil 4.5 K/uL (1.8-8.0); Basophils % 0.7 % (0-1.3); Eosinophils % 1.1 % (0-4.4); Hematocrit 44.8 % (39.6-49.0); Hemoglobin 14.8 g/dL (13.6-17.9); Lymphocytes % 26.3 % (15.3-44.8); MCH 32.9 pg (27.0-35.0); MCV 99.9 fL (80-100); MPV 8.4 fL (7.6-11.3); Monocytes % 7.7 % (3.3-12.3); Neutrophils % 64.2 % (41.7-73.7); Platelets 250 thou/uL (152-406); RBC Red Blood Cell Count 4.48 M/uL (4.33-5.43); Red Cell Distribution Width 13.3 % (12.1-15.2)
[2023-08-23 15:30] LABS: ALT/SGPT 27 U/L (16-61); AST/SGOT 11 U/L (15-37); Albumin 3.5 g/dL (3.4-5.0); Albumin/Globulin Ratio 0.9 (1.1-1.8); Alkaline Phosphatase 93 U/L (45-117); Anion Gap 8.3 mEq/L (5.0-15.0); BUN Blood Urea Nitrogen 5 mg/dL (7-18); Bicarbonate 26 mEq/L (21-32); Bilirubin Total 0.3 mg/dL (0.2-1.0); Globulin 3.8 g/dL (2.3-3.5); Glomerular Filtration Rate 105 ml/min (=/>90); Glucose Level 105 mg/dL (74-106); Magnesium 2.3 mg/dL (1.6-2.4); Potassium 3.3 mEq/L (3.5-5.1); Protein, Total 7.3 g/dL (6.4-8.2); Sodium Level 137 mEq/L (136-145); Troponin High Sensitivity 3.3 pg/mL (<58.9)
[2023-08-23 15:37] LABS: Bilirubin Direct < 0.2 mg/dL (0-0.2); Bilirubin Indirect, Calculated 0.1 mg/dL (0.2-0.8)
--- NOTE | 2023-08-23 16:41 | RAD REPORT ---
EXAM DESCRIPTION: CT - Chest Abdomen Pelvis W Cont - 08/23/2023 4:06 pm CLINICAL HISTORY: Chest and abdominal pain COMPARISON: CT chest February 2023 CT chest and abdomen 2019 TECHNIQUE: Computed axial tomography of the chest, abdomen and pelvis was obtained. 100 cc Isovue-30 0 was administered intravenously. Oral contrast was not requested. This limits evaluation of bowel. All CT scans are performed using dose optimization technique as appropriate and may include automated exposure control or mA/KV adjustment according to patient size. FINDINGS: A 6 millimeter nodule posterior right lower lobe unchanged. Several additional smaller amarilis g nodules unchanged from prior exam No mediastinal or hilar lymphadenopathy. No pleural effusion. No pericardial effusion. 9 millimeter lesion inferior right liver unchanged Spleen, Pancreas, adrenals and kidneys are unremarkable No evidence of diverticulitis Normal appendix Small left inguinal hernia contains fat. Small umbilical hernia IMPRESSION: 6 millimeter right lung nodule unchanged from February 2023 probably benign. It is recom mended that the patient have a all followup unenhanced CT chest in 12-18 months per Earlner guidel anival 9 millimeter hepatic lesion unchanged from 2022. It is recommended that the patient have a followup h epatic ultrasound in 3 months for re-evaluation
--- NOTE | 2023-08-23 17:23 | EDPHYS ---
Physician Documentation [facility] Name: Nabil Aleman Age: 53 yrs Sex: Male : 1970 Arrival Date: 08/23/2023 Time: 14:36 Bed 5 Private MD: ED Physician Raymond Rizo HPI: 08/22 17:49 This 53 yrs old Male presents to ER via Ambulatory with complaints of Chest Pain. rt 15:08 Patient presents to the ED with 2 days of right-sided chest pain that radiates to the rt lower abdomen, is worse with deep breath, worse with movement. Denies difficulty breathing. Reports a lump for about 1 year to his right armpit. Denies other acute complaints, symptoms are moderate in severity, no other aggravating or alleviating factors. Historical: - Allergies: 14:43 No Known Drug Allergies; bp - PMHx: 14:43 COPD; bp - Immunization history:: Adult Immunizations up to date. - Infectious Disease History:: Denies. - Social history:: Smoking status: unknown. - Family history:: not pertinent. ROS: 15:08 Constitutional: Negative for fever, chills, and weight loss, Respiratory: Negative for rt shortness of breath, cough, wheezing, and pleuritic chest pain, MS/Extremity: Negative for injury and deformity, Skin: Negative for injury, rash, and discoloration, Neuro: Negative for headache, weakness, numbness, tingling, and seizure, 15:08 Cardiovascular: Positive for chest pain, Negative for edema, 15:08 Abdomen/GI: Positive for abdominal pain, Negative for nausea and vomiting, Exam: 15:08 Constitutional: This is a well developed, well nourished patient who is awake, alert, rt and in no acute distress. Head/Face: Normocephalic, atraumatic. Chest/axilla: Normal chest wall appearance and motion. Nontender with no deformity. No lesions are appreciated. Cardiovascular: Regular rate and rhythm with a normal S1 and S2. No gallops, murmurs, or rubs. Normal PMI, no JVD. No pulse deficits. Respiratory: Lungs have equal breath sounds bilaterally, clear to auscultation and percussion. No rales, rhonchi or wheezes noted. No increased work of breathing, no retractions or nasal flaring. Skin: Warm, dry with normal turgor. Normal color with no rashes, no lesions, and no evidence of cellulitis. MS/ Extremity: Pulses equal, no cyanosis. Neurovascular intact. Full, normal range of motion. Neuro: Awake and alert, GCS 15, oriented to person, place, time, and situation. Cranial nerves II-XII grossly intact. Motor strength 5/5 in all extremities. Sensory grossly intact. Cerebellar exam normal. Normal gait. 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 15:08 ECG was reviewed by the Attending Physician. Vital Signs: 14:42 BP 124 / 74; Pulse 96; Resp 20; Temp 98; Pulse Ox 96% ; bp 17:49 BP 117 / 85; Pulse 75; Resp 18; Pulse Ox 96% on R/A; ll1 MDM: 14:51 Patient medically screened. rt 17:47 Differential diagnosis: ACS, chest wall pain, lipoma. HEART Score: History: Slightly rt Suspicious (0), ECG: Normal (0), Age: > 45 and < 65 years (1), Risk Factors: 1 or 2 risk factors (1), Troponin: < or = 1 x Normal Limit (0), Total Score = 2. Data reviewed: vital signs, nurses notes, lab test result(s), EKG, radiologic studies. Consideration of Admission/Observation Escalation of care including admission/observation considered. Low heart score, symptoms not consistent with an acute coronary syndrome. Given chronicity of symptoms, 1 set of enzymes is sufficient to rule out an acute coronary syndrome. I considered the following discharge prescriptions or medication management in the emergency department Medications were administered in the Emergency Department. See MAR. Independent interpretation of the following test(s) in the Emergency Department CT Scan: My interpretation is No pneumonia seen on my interpretation of CT scan images. Test considered but Not performed: X-ray: CT scan performed, x-rays redundant. Care significantly affected by the following chronic conditions: Chronic Obstructive Pulmonary Disease. Counseling: I had a detailed discussion with the patient and/or guardian regarding the historical points, exam findings, and any diagnostic results supporting the discharge/admit diagnosis, lab results, radiology results, the need for outpatient follow up, to return to the emergency department if symptoms worsen or persist or if there are any questions or concerns that arise at home. 08/22 14:52 Order name: Basic Metabolic Panel; Complete Time: 15:39 rt 08/22 14:52 Order name: CBC with Diff; Complete Time: 15:39 rt 08/22 14:52 Order name: LFT's; Complete Time: 15:39 rt 08/22 14:52 Order name: Magnesium; Complete Time: 15:39 rt 08/22 14:52 Order name: Troponin HS; Complete Time: 15:39 rt 08/22 14:52 Order name: CT Chest, Abdomen, Pelvis - W/Contrast; Complete Time: 16:45 rt 08/22 14:44 Order name: EKG - Nurse/Tech; Complete Time: 14:44 bp 08/22 14:52 Order name: Cardiac monitoring; Complete Time: 15:07 rt 08/22 14:52 Order name: IV Saline Lock; Complete Time: 15:07 rt 08/22 14:52 Order name: Labs collected and sent; Complete Time: 15:07 rt 08/22 14:52 Order name: O2 Per Protocol; Complete Time: 15:02 rt 08/22 14:52 Order name: O2 Sat Monitoring; Complete Time: 15:02 rt EC:08 Rate is 97 beats/min. Rhythm is regular, Normal Sinus Rhythm with Right bundle branch rt block. QRS [place] is Normal. [place] interval is normal. QRS interval is normal. QT interval is normal. No Q waves. No ST changes noted. Interpreted by me. Administered Medications: 15:04 Drug: Ketorolac IVP 15 mg IVP once Route: IVP; Site: right antecubital; db 17:51 Follow up: Response: No adverse reaction ll1 Disposition Summary: 08/23/23 17:22 Discharge Ordered Notes: Location: Home rt Condition: Stable rt Diagnosis - Chest pain, unspecified rt Followup: rt - With: Private Physician - When: 2 - 3 days - Reason: Discharge Instructions: - Discharge Summary Sheet rt - Nonspecific Chest Pain, Adult rt Forms: - Medication Reconciliation Form rt - Antibiotic Education rt - Prescription Opioid Use rt - Patient Portal Instructions rt - Leadership Thank You Letter rt Signatures: Dispatcher [employer] Emilio Guadalupe RN RN bp Maria Ines Shea RN RN Raymond Conway MD MD rt Roshni Osei RN ll1
--- NOTE | 2023-08-23 17:23 | ER ---
Nurse's Notes [facility] Name: Nabil Aleman Age: 53 yrs Sex: Male : 1970 Arrival Date: 08/23/2023 Time: 14:36 Bed 5 Private MD: Diagnosis: Chest pain, unspecified Presentation: 08/22 14:42 Chief complaint: Patient states: R CHEST PAIN x2 DAYS. Coronavirus screen: At this bp time, the client does not indicate any symptoms associated with coronavirus-19. Ebola Screen: No symptoms or risks identified at this time. Initial Sepsis Screen: Does the patient meet any 2 criteria? No. Patient's initial sepsis screen is negative. Does the patient have a suspected source of infection? No. Patient's initial sepsis screen is negative. Risk Assessment: Do you want to hurt yourself or someone else? Patient reports no desire to harm self or others. Onset of symptoms is unknown. 14:42 Method Of Arrival: Ambulatory bp 14:42 Acuity: SINDI 3 bp Triage Assessment: 14:43 General: Appears in no apparent distress. Behavior is cooperative, appropriate for age, bp anxious. Pain: Complains of pain in right axilla. EENT: No deficits noted. Neuro: No deficits noted. Cardiovascular: Rhythm is sinus rhythm. Respiratory: Reports shortness of breath. GI: No signs and/or symptoms were reported involving the gastrointestinal system. : No signs and/or symptoms were reported regarding the genitourinary system. Historical: - Allergies: 14:43 No Known Drug Allergies; bp - PMHx: 14:43 COPD; bp - Immunization history:: Adult Immunizations up to date. - Infectious Disease History:: Denies. - Social history:: Smoking status: unknown. - Family history:: not pertinent. Screenin:50 [facility] ED Fall Risk Assessment (Adult) History of falling in the last 3 months, ll1 including since admission No falls in past 3 months (0 pts) Confusion or Disorientation No (0 pts) Intoxicated or Sedated No (0 pts) Impaired Gait No (0 pts) Mobility Assist Device Used No (0 pt) Altered Elimination No (0 pt) Score/Fall Risk Level 0 - 2 = Low Risk Maintained a safe environment, Hourly rounding (assess needs \T\ fall precautionary measures) done. Abuse screen: Denies threats or abuse. Nutritional screening: No deficits noted. Tuberculosis screening: No symptoms or risk factors identified. Assessment: 17:45 General: Appears uncomfortable, Behavior is calm, cooperative, appropriate for age. ll1 Pain: Complains of pain in chest Quality of pain is described as aching. Cardiovascular: Reports chest pain. 17:51 Pain: Pain does not radiate. Pain began. ll1 Vital Signs: 14:42 BP 124 / 74; Pulse 96; Resp 20; Temp 98; Pulse Ox 96% ; bp 17:49 BP 117 / 85; Pulse 75; Resp 18; Pulse Ox 96% on R/A; ll1 ED Course: 14:39 Patient arrived in ED. mr 14:39 Raymond Rizo MD is Attending Physician. rt 14:43 Triage completed. bp 14:43 Arm band placed on. bp 14:45 EKG done, by ED staff. aw1 14:59 Maria Ines Shea, RN is Primary Nurse. db 15:07 Basic Metabolic Panel Sent. bc6 15:07 CBC with Diff Sent. bc6 15:07 LFT's Sent. bc6 15:07 Magnesium Sent. bc6 15:07 Troponin HS Sent. bc6 15:07 Initial lab(s) drawn, by me, sent to lab. Inserted saline lock: 20 gauge in right bc6 antecubital area, using aseptic technique. Blood collected. 16:07 CT Chest, Abdomen, Pelvis - W/Contrast In Process Unspecified. EDMS 17:50 No provider procedures requiring assistance completed. IV discontinued, intact, ll1 bleeding controlled, No redness/swelling at site. Pressure dressing applied. O2 via room air. 17:51 Patient has correct armband on for positive identification. Provided Education on: ll1 return to ED for worsening symptoms. Client placed on continuous cardiac and pulse oximetry monitoring. NIBP monitoring applied. property assessment monitor on. Administered Medications: 15:04 Drug: Ketorolac IVP 15 mg IVP once Route: IVP; Site: right antecubital; db 17:51 Follow up: Response: No adverse reaction ll1 Medication: 17:51 VIS not applicable for this client. ll1 Outcome: 17:22 Discharge ordered by . rt 17:50 Discharged to home ambulatory, ll1 17:50 Condition: stable 17:50 Discharge instructions given to patient, Instructed on discharge instructions, follow up and referral plans. Demonstrated understanding of instructions, follow-up care, 17:51 Patient left the ED. ll1 Signatures: Dispatcher [employer] EDMS DuqueTiffanie, Emilio [place], RN RN Roshni Quinones RN RN ll1 Mraia Ines Shea RN RN Raymond Conway MD MD rt Dodie Tamayo 6 Steff Muhammad aw
[2023-08-23 18:08] VITALS: BP 117/85; TEMP 98; O2SAT 96
--- NOTE | 2023-08-24 15:08 | EKG ---
Test Date: 2023-08-23 Test Time: 14:44:27 Director Smb Sales: JUVENAL MEASUREMENT RESULTS: Intervals: Rate: 97 DC: 130 QRSD: 108 QT: 362 QTc: 459 [place]: P: 81 DC: 130 QRS: 74 T: 34 INTERPRETIVE STATEMENTS: Normal sinus rhythm Incomplete right bundle branch block Borderline ECG Compared to ECG 03/07/2023 21:11:02 Incomplete right bundle-branch block now present Electronically Signed On 08-24-23 15:06:03 CDT by Herbert Mccarty
== END 2023-08-23 17:51 | disposition home or self-care (01) ==
LOC: ER 14:36
DX: R07.9 Chest pain, unspecified (principal)
CPT/HCPCS: 93005; 85025; 80048; 36415; 83735; 80076; 84484; 71260; 74177; 96374; 99285; Q9967

== ENCOUNTER 2024-07-31 16:17 | Inpatient (IN) | payer OTHER ==
--- OUTSIDE RECORDS SUMMARY | 2024-07-31 16:19 | XMS REPORT | Continuity of Care Document ---
Author Name Unknown Address [address] [place] [address] Organization [facility] [place] Address [address] [place] [address] Care Team Providers Care It Support Engineer Name Role Phone Daryrl ANDERS, Zachary Hairston Primary Care Physician Woo Gilmore MD Attending Clinician [phone] WOO GILMORE Attending Clinician Unavailable Payers Payer Name Policy Type Policy Number Effective Date Expirati on Date Source [employer] PPO [id number] 2023 00:00:00 Problems Condition Name Condition Details Condition Category Status Onset Date Resolution Date Last Treatment Date Treating Clinician Comments Source Chronic obstructiv e pulmonary disease, unspecifie d COPD type Chronic obstructiv e pulmonary disease, unspecifie d COPD type Disease Active 07-24 00:00: 00 [facility] Cigarette smoker Cigarette smoker Disease Active 07-24 00:00: 00 [facility] Chest pain, unspecifie d type Chest pain, unspecifie d type Disease Active 07-24 00:00: 00 [facility] SAUCEDO (dyspnea on exertion) SAUCEDO (dyspnea on exertion) Disease Active 07-24 00:00: 00 [facility] Hyperlipid emia, unspecifie d hyperlipid emia type Hyperlipid emia, unspecifie d hyperlipid emia type Disease Active 07-24 00:00: 00 [facility] Elevated blood pressure reading Elevated blood pressure reading Disease Active 07-24 00:00: 00 [facility] Allergies, Adverse Reactions, Alerts Allergy Name Allergy Type Status Severity Reaction(s) Onset Date Inactive Date Treating Clinician Comments Source NO KNOWN ALLERGIE S Drug Class Active [facility] Social History Social Habit Start Date Stop Date Quantity Comments Source History of tobacco use 1984-03-15 00:00:00 Cigarette Smoker [facility] current (pack per day) - Reported 2024-07-24 00:00:00 2024-07-24 00:00:00 [facility] Cigarette pack-years 2024-07-24 00:00:00 2024-07-24 00:00:00 [facility] Tobacco use and exposure 2024-07-24 00:00:00 2024-07-24 00:00:00 Smokeless tobacco non-user [facility] History of Social function 2024-07-24 00:00:00 2024-07-24 00:00:00 [facility] Sex assigned at 1970 00:00:00 1970 00:00:00 [facility] Smoking Status Start Date Stop Date Source Smokes tobacco daily 2024-07-24 00:00:00 [facility] Medications Ordered Medication Name Filled Medication Name Start Date Stop Date Current Medication? Ordering Clinician Indication Dosage Frequency Signature (SIG) Comments Components Source escitalopra m oxalate 10 mg tablet 07-24 14:06: 18 Yes 10mg Take 1 tablet by mouth in the morning. [facility] albuterol sulfate HFA 90 mcg/actuati on aerosol inhaler 07-11 00:00: 00 Yes 2{puff} Inhale 2 Puffs every 4 (four) hours as needed. [facility] busPIRone 7.5 mg tablet 07-02 00:00: 00 Yes 7.5mg Take 1 tablet by mouth in the morning and 1 tablet in the evening. [facility] TRELEGY ELLIPTA 100-62.5-25 mcg inhaler 07-02 00:00: 00 Yes 1{puff} Inhale 1 Puff in the morning. [facility] REXULTI 0.5 mg Tab -15 00:00: 00 Yes 1{tbl} Take 1 tablet by mouth in the morning. [facility] eszopiclone 2 mg tablet 15 00:00: 00 Yes 2mg Take 1 tablet by mouth at bedtime. [facility] FLUoxetine 10 mg capsule 06-12 00:00: 00 Yes 20mg Take 2 capsules by mouth in the morning. [facility] rosuvastati n 5 mg tablet - 00:00: 00 Yes 5mg Take 1 tablet by mouth in the morning. [facility] Trelegy Ellipta 100 mcg-62.5 mcg-25 mcg powder for inhalation 1- 00:00: 00 Yes 1mcg Messi Pierce Vital Signs Vital Name Observation Time Observation Value Comments S our Systolic blood pressure 2024-07-24 19:10:00 137 mm[Hg] [facility] Diastolic blood pressure 2024-07-24 19:10:00 93 mm[Hg] [facility] Heart rate 2024-07-24 19:10:00 86 /min [facility] Oxygen saturation in Arterial blood by Pulse oximetry 2024-07-24 19:10:00 94 /min [facility] Respiratory rate 2024-07-24 19:07:00 16 /min [facility] Body height 2024-07-24 19:07:00 182.9 cm [facility] Body weight 2024-07-24 19:07:00 100.109 kg [facility] BMI 2024-07-24 19:07:00 29.93 kg/m2 [facility] Weight Measured 2024-03-27 11:38:00 214.00 pounds Messi Pierce Height Measured 2024-03-27 11:38:00 73.00 inches Messi Pierce Body Temperature 2024-03-27 11:38:00 98.20 degrees Messi Pierce Heart Rate 2024-03-27 11:38:00 85.00 /min Kathy Pierce Respiratory Rate 2024-03-27 11:38:00 Mesis Pierce BP Systolic 2024-03-27 11:38:00 115 mm[Hg] Juan Luis Pierce BP Diastolic 2024-03-27 11:38:00 61 mm[Hg] Dylan Pierce Encounters Start Date/Time End Date/Time Encounter Type Admission Type Attending [facility] Care Department Encounter ID Source 2024-07-24 14:40:00 2024-07-24 14:55:48 [facility] Woo [facility] [id number] [facility] 2024-07-24 14:40:00 2024-07-24 14:55:48 Outpatient R WOO GILMORE [facility] [id number] [facility] 2024-03-27 11:36:05 2024-03-27 11:36:05 Outpatient SFA SFA [id number] Messi Pierce 2024-03-27 00:00:00 2024-03-27 00:00:00 Outpatient Visit SFA SFA [id number] Messi Pierce Notes Date/Time Note Provider Source Messi Pily [facility]
[2024-07-31] MEDS ORDERED: ONDANSETRON 4 MG/2 ML VIAL ONE (18:08)
[2024-07-31] MEDS ORDERED: NA CHLORIDE 0.9% 1,000 ML ONE (18:08)
[2024-07-31] MEDS ORDERED: MORPHINE 4 MG/ML SYR ONE (18:08)
[2024-07-31 18:19] LABS: Absolute Basophils 0.1 K/uL (0-0.5); Absolute Lymphocytes (CBC) 1.3 K/uL (0.7-4.9); Absolute Monocytes 1.1 K/uL (0.1-1.3); Basophils % 0.4 % (0-1.3); Eosinophils % 0.1 % (0-4.4); Hematocrit 45.8 % (39.6-49.0); Hemoglobin 15.9 g/dL (13.6-17.9); Lymphocytes % 8.7 % (15.3-44.8); MCH 33.5 pg (27.0-35.0); MCHC 34.8 g/dL (32.0-36.0); MCV 96.4 fL (80-100); MPV 8.9 fL (7.6-11.3); Monocytes % 7.9 % (3.3-12.3); Neutrophils % 82.9 % (41.7-73.7); Platelets 221 thou/uL (152-406); RBC Red Blood Cell Count 4.76 M/uL (4.33-5.43); Red Cell Distribution Width 13.4 % (12.1-15.2)
[2024-07-31 18:34] LABS: Albumin 3.8 g/dL (3.4-5.0); Albumin/Globulin Ratio 0.8 (1.1-1.8); Anion Gap 6.8 mEq/L (5.0-15.0); Globulin 4.5 g/dL (2.3-3.5); Potassium 3.8 mEq/L (3.5-5.1); Protein, Total 8.3 g/dL (6.4-8.2)
[2024-07-31 18:37] LABS: Specific Gravity 1.025 (1.005-1.030); Sqamous Epithelial <5 /HPF (None Seen); Urine Bacteria None Seen /HPF (<20); Urine Bilirubin NEGATIVE (Negative); Urine Blood Negative (Negative); Urine Clarity Turbid (Clear); Urine Color Yellow (Yellow); Urine Crystals Unidentified Few /HPF (None Seen); Urine Culture Reflex Order NOT NEEDED; Urine Glucose NEGATIVE (Negative); Urine Ketones 1+ (Negative); Urine Microscopic Reflex YN ORDER UMIC; Urine Mucus 1+ /HPF (None Seen); Urine Nitrite NEGATIVE (Negative); Urine Protein 1+ (Negative); Urine Urobilinogen 2+ (Normal); Urine WBC <5 /HPF (<5)
--- NOTE | 2024-07-31 19:05 | RAD REPORT ---
EXAM: Chest Abdomen Pelvis W Cont CLINICAL INDICATION: Male, 54 years abd pain;Chest pain TECHNIQUE: CT chest, abdomen and pelvis was performed, with IV contrast, as per department protocol. Axial, sagittal and coronal reconstructions were obtained. One or more of the following dose reduction techniques were used: Automated exposure control, adjustment of the mA and/or kV according to the patient size, and/or iterative reconstruction. Unless otherwise specified, incidental findings do not require dedicated imaging follow-up. [id number]. COMPARISON: 09/02/2023 FINDINGS: ---THORAX--- LOWER NECK AND CHEST WALL: Visualized thyroid gland and soft tissues are normal. MEDIASTINUM AND LYMPH NODES: No mediastinal mass or fluid collection. Normal size mediastinal, hilar, and axillary lymph nodes. Diffuse esophageal wall thickening. THORACIC AORTA: No thoracic aortic aneurysm. PULMONARY ARTERIES: Caliber is within normal limits. HEART: Normal heart size. No coronary calcifications.Trace pericardial effusion. LUNGS AND AIRWAYS: Scattered bilateral pulmonary nodules are unchanged since 08/23/2023. No acute proc ess identified. PLEURA: No pleural effusion. No pneumothorax. ---ABDOMEN/PELVIS--- UPPER GI: No acute process. LIVER: Low-density lesion in the inferior aspect of the right hepatic lobe measuring 11 mm has benign imaging features. GALLBLADDER/BILE DUCTS: No biliary ductal dilatation.? PANCREAS: No mass, ductal dilation, or marci-pancreatic fluid. SPLEEN: Unremarkable. ADRENALS: No adrenal masses. KIDNEYS AND URETERS: No hydronephrosis.Low density and/or too small to characterize renal lesions whi ch are statistically benign.No renal calculi.No ureteral calculi. ABDOMINAL AORTA AND OTHER VESSELS: Normal caliber aorta and IVC. PERITONEUM: Inflammatory changes in the right paracolic gutter. LYMPH NODES: No pathologic lymphadenopathy. ABDOMINAL WALL: Fat containing left inguinal hernia. SMALL BOWEL/COLON: Small bowel has normal course and caliber. No colonic wall thickening or pericolon ic inflammatory changes.Inflammatory changes in the right hemiabdomen associated with the tip of the appendix which is near the lower margin of the right hepatic lobe. Punctate appendicoliths presen t. No evidence of perforation. URINARY BLADDER: Underdistended but grossly unremarkable. REPRODUCTIVE ORGANS: No pathologic process. ---COMBINED--- MUSCULOSKELETAL: No acute or suspicious osseous abnormality. ADDITIONAL FINDINGS: None. IMPRESSION: Nonperforated acute appendicitis.. No acute findings in the chest. THIS REPORT CONTAINS FINDINGS THAT MAY BE CRITICAL TO PATIENT CARE. The emergent findings were commun icated to Amarilys Peterson on 07/31/2024 7:02 PM.
--- NOTE | 2024-07-31 19:13 | EDPHYS ---
Physician Documentation [facility] Name: Nabil Aleman Age: 54 yrs Sex: Male : 1970 Arrival Date: 07/31/2024 Time: 16:17 Bed 19 Private MD: ED Physician Vinny Bagley HPI: 07/31 17:12 This 54 yrs old Male presents to ER via Ambulatory with complaints of Abdominal Pain, sb4 Nausea. 17:12 The patient presents with abdominal pain right lower quadrant. Onset: The sb4 symptoms/episode began/occurred yesterday. The symptoms do not radiate. Associated signs and symptoms: Pertinent positives: nausea. The patient has not experienced similar symptoms in the past. Historical: - Allergies: 17:06 No Known Allergies; ap3 - PMHx: 17:06 COPD; Hypercholesterolemia; ap3 - PSHx: 17:06 hernia; Tonsillectomy; ap3 - Immunization history:: Client reports receiving the 2nd dose of the Covid vaccine, Flu vaccine is not up to date. - Infectious Disease History:: Denies. - Social history:: Smoking status: Patient reports the use of cigarette tobacco products, smokes one-half pack cigarettes per day. ROS: 17:12 Constitutional: Negative for fever, chills, and weight loss, sb4 17:12 Abdomen/GI: Positive for abdominal pain, nausea, 17:12 All other systems are negative, Exam: 17:12 Head/Face: Normocephalic, atraumatic. Eyes: Extra-ocular motions intact. Periorbital sb4 areas with no swelling, redness, or edema. ENT: Mucous membranes moist. Cardiovascular: Regular rate and rhythm with a normal S1 and S2. Respiratory: No increased work of breathing, no retractions or nasal flaring. Skin: Warm, dry with normal turgor. Normal color with no rashes, no lesions, and no evidence of cellulitis. 17:12 Constitutional: The patient appears alert, awake, in obvious pain, uncomfortable, 17:12 Respiratory: Breath sounds: are clear throughout, 17:12 Abdomen/GI: Inspection: distension, that is mild, Bowel sounds: normal, Palpation: moderate abdominal tenderness, in the right lower quadrant, 17:12 Back: CVA tenderness, is absent, Vital Signs: 17:04 BP 130 / 87; Pulse 95; Resp 17; Temp 97.8; Pulse Ox 97% ; Weight 99.79 kg; Height 6 ft. ap3 0 in. ; Pain 9/10; 18:00 BP 125 / 90; Pulse 108; Resp 20; Pulse Ox 98% ; me1 19:00 BP 132 / 87; Pulse 95; Resp 17; Temp 98.1; Pulse Ox 95% ; me1 20:00 BP 128 / 83; Pulse 93; Resp 17; Pulse Ox 93% ; me1 20:45 BP 119 / 81; Pulse 92; Resp 19; Temp 98.3; Pulse Ox 92% ; me1 17:04 Body Mass Index 29.84 (99.79 kg, 182.88 cm) ap3 17:04 Pain Scale: Adult ap3 MDM: 16:20 Medical Screening Exam initiated sb4 17:13 Differential diagnosis: appendicitis, bowel obstruction, diverticulitis, non-specific sb4 abd pain, Ureterolithiasis. 18:43 Data reviewed: vital signs, nurses notes, lab test result(s), radiologic studies, and sb4 as a result, I will admit patient. Consideration of Admission/Observation Patient was admitted/placed on observation. Independent interpretation of the following test(s) in the Emergency Department CT Scan: My interpretation is My interpretation of the abdomen pelvis CT images is acute appendicitis. Counseling: I had a detailed discussion with the patient and/or guardian regarding the historical points, exam findings, and any diagnostic results supporting the discharge/admit diagnosis, lab results, radiology results, the need for further work-up and treatment in the hospital. 19:12 Management of patient was discussed with the following: Lead Quality Control Technician: Dr. Melendrez, 4 accepts to his service, will take to OR in morning. 07/31 17:11 Order name: CBC with Diff; Complete Time: 18:22 4 07/31 17:11 Order name: CMP; Complete Time: 18:35 sb4 07/31 17:11 Order name: Lipase; Complete Time: 18:35 sb4 07/31 17:11 Order name: UA Rfx Everett Cult if indicated; Complete Time: 18:37 sb4 07/31 19:02 Order name: Blood Culture Adult (2) sb4 07/31 19:02 Order name: Lactate w/ 2H reflex if indic.; Complete Time: 20:01 sb4 07/31 19:02 Order name: Protime (+inr); Complete Time: 19:52 sb4 07/31 19:02 Order name: Ptt, Activated; Complete Time: 19:52 sb4 07/31 17:11 Order name: CT Chest, Abdomen, Pelvis - W/Contrast; Complete Time: 19:09 sb4 07/31 17:11 Order name: IV Saline Lock; Complete Time: 18:12 sb4 07/31 17:11 Order name: Labs collected and sent; Complete Time: 18:12 sb4 Administered Medications: 18:19 Drug: NS 0.9% IV 1000 ml IV at 1 bolus Per protocol; to be given as a bolus over 60 me1 minutes Route: IV; Rate: 1 bolus; Site: right antecubital; 20:53 Follow up: Response: No adverse reaction; IV Status: Completed infusion me1 18:20 Drug: Ondansetron IVP 4 mg IVP once; over 2 minutes Route: IVP; Site: right antecubital;me1 19:39 Follow up: Response: No adverse reaction; Nausea is decreased me1 18:20 Drug: morphine IVP or IV 4 mg IVP once over 4 mins Route: IVP; Infused Over: 4 mins; me1 Site: right antecubital; 19:39 Follow up: Response: No adverse reaction; Pain is decreased me1 19:49 Drug: Piperacillin-Tazobactam IVPB 3.375 grams IVPB once over 60 mins; (mix in NS 100 me1 mL) Route: IVPB; Infused Over: 60 mins; Site: right antecubital; 20:53 Follow up: Response: No adverse reaction; IV Status: Completed infusion; IV Intake: me1 100ml 19:49 Drug: fentaNYL (PF) IVP 50 mcg IVP once Route: IVP; Site: right antecubital; me1 20:53 Follow up: Response: No adverse reaction; Pain is decreased me1 Disposition: 17:35 I was immediately available on-site in the Emergency Department for consultation in the ms3 care of the patient. Disposition Summary: 07/31/24 19:12 Hospitalization Ordered Notes: Hospitalization Status: Inpatient Admission sb4 Provider: Aleksandr Melendrez4 [facility] sb4 Condition: Fair sb4 Problem: new sb4 Symptoms: are unchanged sb4 Bed/Room Type: Standard sb4 Room Assignment: 414(07/31/24 19:23) [facility] Diagnosis - Acute appendicitis with localized peritonitis sb4 Forms: - Medication Reconciliation Form sb4 - SBAR form sb4 - Leadership Thank You Letter sb4 Signatures: Dispatcher [employer] Aracelis Simms, RN RN ap3 Vinny Bagley, DO ms3 Amarilys Peterson PA-C PA-C sb4 Tiffany Trejo RN RN me1 Maggy Jones [facility] Corrections: (The following items were deleted from the chart) 17:12 17:12 CBC+H.LAB.BRZ ordered. EDMS EDMS 17:12 17:12 COMPREHENSIVE METABOLIC PANEL+C.LAB.BRZ ordered. EDMS EDMS 17:12 17:12 LIPASE+C.LAB.BRZ ordered. EDMS EDMS 17:12 17:12 UA Rfx Everett Cult if indicated+U.LAB.BRZ ordered. EDMS EDMS 17:12 17:12 Chest Abdomen Pelvis W Con+CT.RAD.BRZ ordered. EDMS EDMS 19:23 19:12 sb4 [facility]
--- NOTE | 2024-07-31 19:13 | ER ---
Nurse's Notes [facility] Name: Nabil Aleman Age: 54 yrs Sex: Male : 1970 Arrival Date: 07/31/2024 Time: 16:17 Bed 19 Private MD: Diagnosis: Acute appendicitis with localized peritonitis Presentation: 07/31 17:04 Chief complaint: Patient states: he has been having abdominal pain since yesterday. ap3 patient states he has been having nausea, and rates his pain as a 9/10 on the pain scale. Coronavirus screen: At this time, the client does not indicate any symptoms associated with coronavirus-19. Ebola Screen: No symptoms or risks identified at this time. Initial Sepsis Screen: Does the patient meet any 2 criteria? No. Patient's initial sepsis screen is negative. Does the patient have a suspected source of infection? No. Patient's initial sepsis screen is negative. Risk Assessment: Do you want to hurt yourself or someone else? Patient reports no desire to harm self or others. Onset of symptoms was July 30, 2024. 17:04 Method Of Arrival: Ambulatory ap3 17:04 Acuity: SINDI 3 ap3 Triage Assessment: 17:06 General: Appears uncomfortable, Behavior is calm, cooperative, appropriate for age. ap3 Pain: Complains of pain in right lower quadrant Pain currently is 9 out of 10 on a pain scale. Pain began 1 day ago. Neuro: Level of Consciousness is awake, alert, obeys commands, Oriented to person, place, time, situation. Cardiovascular: Patient's skin is warm and dry. Respiratory: Airway is patent Respiratory effort is even, unlabored, Respiratory pattern is regular, symmetrical. GI: Reports lower abdominal pain, nausea. Historical: - Allergies: 17:06 No Known Allergies; ap3 - PMHx: 17:06 COPD; Hypercholesterolemia; ap3 - PSHx: 17:06 hernia; Tonsillectomy; ap3 - Immunization history:: Client reports receiving the 2nd dose of the Covid vaccine, Flu vaccine is not up to date. - Infectious Disease History:: Denies. - Social history:: Smoking status: Patient reports the use of cigarette tobacco products, smokes one-half pack cigarettes per day. Screenin:07 Abuse screen: Denies threats or abuse. Nutritional screening: No deficits noted. ap3 Tuberculosis screening: No symptoms or risk factors identified. 17:30 [facility] ED Fall Risk Assessment (Adult) History of falling in the last 3 months, me1 including since admission No falls in past 3 months (0 pts) Confusion or Disorientation No (0 pts) Intoxicated or Sedated No (0 pts) Impaired Gait No (0 pts) Mobility Assist Device Used No (0 pt) Altered Elimination No (0 pt) Score/Fall Risk Level 0 - 2 = Low Risk Oriented to surroundings, Provided non-skid footwear, Hourly rounding (assess needs \T\ fall precautionary measures) done. Assessment: 17:30 General: Appears uncomfortable, well groomed, well developed, well nourished, Behavior me1 is calm, cooperative, appropriate for age, Reports right flank pain with nausea that started yesterday. Pain: Complains of pain in right lower quadrant and abdomen Pain does not radiate. Pain currently is 9 out of 10 on a pain scale. Quality of pain is described as sharp, Pain began 1 day ago. Is continuous. Neuro: Level of Consciousness is awake, alert, obeys commands, Oriented to person, place, time, situation, Appropriate for age. Cardiovascular: Patient's skin is warm and dry. Respiratory: Airway is patent Respiratory effort is even, unlabored, Respiratory pattern is regular, symmetrical. GI: Abdomen is round non-distended, Bowel sounds present X 4 quads. Abd is soft X 4 quads Reports nausea, since yesterday. : Reports pain in right flank(s), lower quadrant(s) since yesterday. EENT: No signs and/or symptoms were reported regarding the EENT system. Derm: Skin is intact, is healthy with good turgor, Skin is pink, warm \T\ dry. Musculoskeletal: No signs and/or symptoms reported regarding the musculoskeletal system. Vital Signs: 17:04 BP 130 / 87; Pulse 95; Resp 17; Temp 97.8; Pulse Ox 97% ; Weight 99.79 kg; Height 6 ft. ap3 0 in. ; Pain 9/10; 18:00 BP 125 / 90; Pulse 108; Resp 20; Pulse Ox 98% ; me1 19:00 BP 132 / 87; Pulse 95; Resp 17; Temp 98.1; Pulse Ox 95% ; me1 20:00 BP 128 / 83; Pulse 93; Resp 17; Pulse Ox 93% ; me1 20:45 BP 119 / 81; Pulse 92; Resp 19; Temp 98.3; Pulse Ox 92% ; me1 17:04 Body Mass Index 29.84 (99.79 kg, 182.88 cm) ap3 17:04 Pain Scale: Adult ap3 ED Course: 16:19 Patient arrived in ED. im 16:19 Amarilys Peterson PA-C is PHCP. sb4 16:20 Vinny Bagley DO is Attending Physician. sb4 17:06 Triage completed. ap3 17:07 Arm band placed on left wrist. ap3 17:20 Tiffany Trejo, JUAN is Primary Nurse. me1 17:30 Patient has correct armband on for positive identification. Placed in gown. Provided me1 Education on: POC. Verbalized understanding.. Client placed on continuous cardiac and pulse oximetry monitoring. NIBP monitoring applied. Pulse ox on. NIBP on. 17:30 No provider procedures requiring assistance completed. me1 18:12 Initial lab(s) drawn, by me, sent to lab. Urine collected: clean catch specimen, me1 cloudy, tea colored. Inserted saline lock: 20 gauge in right antecubital area, using aseptic technique. 18:12 CBC with Diff Sent. me1 18:12 CMP Sent. me1 18:12 Lipase Sent. me1 18:12 UA Rfx Everett Cult if indicated Sent. me1 18:37 CT Chest, Abdomen, Pelvis - W/Contrast In Process Unspecified. EDMS 19:12 Aleksandr Melendrez MD is Hospitalizing Provider. sb4 20:45 Patient admitted, IV remains in place. me1 Administered Medications: 18:19 Drug: NS 0.9% IV 1000 ml IV at 1 bolus Per protocol; to be given as a bolus over 60 me1 minutes Route: IV; Rate: 1 bolus; Site: right antecubital; 20:53 Follow up: Response: No adverse reaction; IV Status: Completed infusion me1 18:20 Drug: Ondansetron IVP 4 mg IVP once; over 2 minutes Route: IVP; Site: right antecubital;me1 19:39 Follow up: Response: No adverse reaction; Nausea is decreased me1 18:20 Drug: morphine IVP or IV 4 mg IVP once over 4 mins Route: IVP; Infused Over: 4 mins; me1 Site: right antecubital; 19:39 Follow up: Response: No adverse reaction; Pain is decreased me1 19:49 Drug: Piperacillin-Tazobactam IVPB 3.375 grams IVPB once over 60 mins; (mix in NS 100 me1 mL) Route: IVPB; Infused Over: 60 mins; Site: right antecubital; 20:53 Follow up: Response: No adverse reaction; IV Status: Completed infusion; IV Intake: me1 100ml 19:49 Drug: fentaNYL (PF) IVP 50 mcg IVP once Route: IVP; Site: right antecubital; me1 20:53 Follow up: Response: No adverse reaction; Pain is decreased me1 Medication: 17:30 VIS not applicable for this client. me1 Intake: 20:53 IV: 100ml; Total: 100ml. me1 Outcome: 19:12 Decision to Hospitalize by Provider. sb4 20:45 Admitted to Tele accompanied by tech, via wheelchair, room 414, with chart, Report me1 called to tubed up, receipt confirmed with Lewis 20:45 Condition: stable 20:45 Instructed on the need for admit, 20:54 Patient left the ED. me1 Signatures: Dispatcher [employer] Aracelis Simms, RN RN [email or web address] Amarilys Peterson PABeth PA-C sb4 Madai Marquez Michelle, RN RN me1 Corrections: (The following items were deleted from the chart) 20:08 19:00 BP 124 / 91; Pulse 96bpm; Resp 18bpm; Pulse Ox 96%; me1 me1
[2024-07-31] MEDS ORDERED: FENTANYL CITR 100 MCG/2 ML ONE (19:32)
[2024-07-31] MEDS ORDERED: PIPERACIL/TAZO 3.375 GM VIAL IV ONE (19:34)
[2024-07-31] MEDS ORDERED: NA CHLORIDE 0.9% 100 ML ONE (19:34)
[2024-07-31 19:50] LABS: PT Prothrombin Time 12.2 SECONDS (10-13.0); PTT, Activated Partial Thromb 29.4 SECONDS (27.2-37.4); Protime INR 1.07
[2024-07-31] MEDS ORDERED: ONDANSETRON 4 MG/2 ML VIAL IV PRN (21:16)
[2024-07-31] MEDS: NA CHLORIDE 0.9% 1,000 ML IV SCH (21:29)
[2024-07-31 22:27] VITALS: BMI 29.8
[2024-07-31] MEDS: MORPHINE 4 MG/ML SYR IV PRN (22:46)
[2024-08-01] MEDS: PIPER TAZO 3.375 GM in NA CHLORIDE 0.9% 100 ML IV SCH (00:59)
[2024-08-01] MEDS: Ringers Lactate 1,000 ML IV ONE (07:03)
[2024-08-01] MEDS: BUPIVACAINE 0.5% PF 10 ML VIAL ONE (07:05)
[2024-08-01] MEDS ORDERED: MIDAZOLAM HCL 2 MG/2 ML INJ ONE (07:17)
[2024-08-01] MEDS ORDERED: propofoL 200 MG/20 ML VIAL IV ONE (07:17)
[2024-08-01] MEDS ORDERED: FENTANYL CITR 100 MCG/2 ML ONE (07:17)
[2024-08-01] MEDS ORDERED: ROCURONIUM 50 MG/5 ML VIAL IV ONE (07:17)
[2024-08-01] MEDS ORDERED: LIDOCAINE 2% MPF 5 ML VIAL ONE (07:17)
[2024-08-01] MEDS ORDERED: ONDANSETRON 4 MG/2 ML VIAL ONE (07:17)
[2024-08-01] MEDS: SUCCINYLCHOLINE 20 MG/ML (10 ML) IV ONE (07:37)
[2024-08-01] MEDS: SUGAMMADEX SODIUM 200 MG/2 ML VIAL IV ONE (07:37)
[2024-08-01] MEDS ORDERED: Phenylephrine HCl 10 MG/ML 1 ML VIAL ONE (08:01)
[2024-08-01] MEDS ORDERED: dexAMETHasone 10 MG/ML VIAL ONE (08:01)
[2024-08-01] MEDS ORDERED: GLYCOPYRROLATE 0.2 MG/ML SYR ONE (08:07)
--- NOTE | 2024-08-01 08:35 | P.BOP ---
Preoperative diagnosis: acute appendicitis Postoperative diagnosis: same plus umbilical hernia Primary procedure: 1. Laparoscopic appendecomy Secondary procedure: 2. Open repair of umbilical hernia Estimated blood loss: <10cc Specimen: appendix, hernia sac Findings: see dicta, retrocecal appendix Anesthesia: General Complications: None Drain(s): SHELBIE drain Transferred to: Recovery Room Condition: Good
[2024-08-01] MEDS ORDERED: MORPHINE 2 MG/ML SYR IV PRN (08:37)
--- NOTE | 2024-08-01 08:41 | HP ---
Date of Admission: 07/31/2024 Diagnosis: Acute appendicitis. History Of Present Illness: This is the case of a 54-year-old patient who came overnight to the ER c omplaining of periumbilical and right lower quadrant tenderness, associated with nausea and bloating since early in the day. He denies any trauma. Denies any dysuria, hematuria, hematochezia, melena. Denies any recent traveling out of the country. Denies any family member sick at home. Denies any prior episodes. Review of Systems: Ten points otherwise unremarkable. Allergies: NONE. Past Medical History: COPD, high cholesterol. Past Surgical History: Includes ventral hernia in [place] and also right inguinal hernia, also tonsi llectomy. He never had any colonoscopy done before. He was advised the importance of colonoscopies. Social History: He smokes half a pack a day. He was counseled about the smoking cessation. He does not drink alcohol. Family History: Noncontributory. Physical Examination: Vital Signs: Temperature 98.1, pulse 105, blood pressure 132/85, O2 sat 97. General: The patient is awake, alert. HEENT: Pupils are equal and reactive. Anicteric. Neck: Supple. Chest: Clear. Heart: S1, S2. Abdomen: Periumbilical and right lower quadrant tenderness with guarding. No rebound. Genitalia: Deferred. Rectal: Deferred. Extremities: Good capillary refill. Dorsalis pedis pulses bilateral. Back: No step-off. No tenderness. Neurological: Cranial nerves 2 through 12 grossly within normal limits. Imaging: CAT scan of the abdomen and pelvis, interpreted by Dr. Tineo as acute appendicitis. The angie ent also has hernia over the left inguinal region. We mentioned also to discuss with his primary doc tor liver densities and kidney densities that they are small and looked benign, per radiologist, but he was advised to discuss that with his primary doctor. Laboratory Data: Blood work shows WBC count of 14.5, hemoglobin of 15.9, platelets of 221. INR is 1 .07. Sodium is 133, glucose 124. Lipase 27. Assessment: 54-year-old patient with acute appendicitis. The benefits, alternatives, and risks of l aparoscopic, possible open appendectomy were fully explained, which included, but not limited to, inf ection, bleeding, damage to adjacent structures, anesthesia complication, LA, and even . He als o understands this may not relieve any symptoms. He might need more than one surgical intervention. He understands the importance of smoking cessation, also weight loss since he is morbidly obese. He should be following up with his primary doctor after this. Also, we advised him that in the next fe w weeks, he should be also having a colonoscopy done. Regardless, with hernia, we discussed also in the future he may have to have elective repair. He already had one in the ventral region and another one in the right inguinal area, repair in the past, now it is the left inguinal region. PENELOPE/LEANDRO Voice ID: [id number]
[2024-08-01] MEDS: MORPHINE 2 MG/ML SYR IV PRN (10:11)
--- NOTE | 2024-08-01 12:40 | OP ---
Date of Procedure: 08/01/2024 Surgeon: Aleksandr Melendrez MD Preoperative Diagnoses: 1. Acute appendicitis. 2. Right lower quadrant abdominal pain. Postoperative Diagnoses: 1. Acute appendicitis. 2. Right lower quadrant abdominal pain. 3. Umbilical hernia. Procedures: 1. Laparoscopic appendectomy. 2. Open repair of umbilical hernia. Estimated Blood Loss: Less than 10 cc. Specimen: Appendix and hernia sac. Findings: The patient had a retrocecal appendix. The white lines of Toldt and cecum have to be part ially mobilized to get the appendix out. The patient also has umbilical hernia that was repaired at the same time. Anesthesia: General plus local. Complications: None. Indications: This is a case of a 54-year-old patient who comes to us with above diagnosis, acute rebecca endicitis and acute abdominal pain. Benefits, alternatives, and risks of laparoscopic possible open appendectomy fully explained, which include, but not limited to infection, bleeding, damage to adjace nt structures, anesthesia complication, abscess, [place] and even . He also understands this may not relieve any symptoms. He might need more than one surgical intervention. He understood and signed a consent. Description Of Procedure: Patient was brought to the operating room, placed in supine position. Ane sthesia was induced without complication. Abdominal area was prepped and draped in usual sterile fas hion. Marcaine 0.5% was injected for local anesthetic, followed by sharp incision of the skin in the infraumbilical region. Once we went there, we noticed the patient to have an umbilical hernia. So we have to remove the umbilical sac from umbilical skin including the fascial edges, put Vicryl #1 in side the fascia. Beny trocar was carefully introduced. No bleeding was obtained. After that, I p laced 2 more trocars, 5 mm each one of them, 1 in the left lower quadrant, another 1 in the suprapubi c area. This allowed me to visualize the area of the appendix. This appendix looks retrocecal, so i n order for us to remove that appendix, we have to mobilize sacrum, so we opened the white lines of T oldt identify the appendix to protect the ureter at all time. Transect the mesoappendix sequentially with the help of LigaSure. Then when we had appendix released, the base of appendix window was inta ct. Then, I proceeded to transect that with the Endo-ABBEY 45 mm nonvascular. The area was irrigated. Appendix removed from abdominal cavity using an EndoCatch through the umbilical incision. The area was irrigated since mobilization of that area, left a SHELBIE drain in that region exiting to 1 of the trocar sites, securing that in place with 3-0 nylon. At that moment, I proceeded to remove t he trocars under direct vision. Deflated the pneumoperitoneum. Closed the fascia and umbilical benny ia with #1 Vicryl. Irrigated subcutaneous tissue, closed that with 3-0 chromic and the skin with sta ples. Sponge counts and instrument counts were correct. The patient tolerated the procedure well. The patient was sent to Recovery in stable condition. PENELOPE/LEANDRO Voice ID: [id number] Report ID: [id number]
[2024-08-01 16:05] VITALS: O2SAT 98
[2024-08-01] MEDS: HYDROCODONE/APAP 7.5/325 MG TAB PO PRN (19:53)
[2024-08-02 08:22] VITALS: BP 133/90; TEMP 97.9
== END 2024-08-02 12:03 | disposition home or self-care (01) | DRG 399 ==
LOC: ER 16:17 → ERHOLD 19:14 → 4TH 20:07
PROVIDERS: ADMIT Surgery; ATTEND Surgery
PROC: 0WQF0ZZ Repair Abdominal Wall, Open Approach (ICD-10-PCS; 2024-08-01)
PROC: 0DTJ4ZZ Resection of Appendix, Percutaneous Endoscopic Approach (ICD-10-PCS; principal; 2024-08-01 07:30)
DX: K35.30 Acute appendicitis with localized peritonitis, without perforation or gangrene (principal); K42.9 Umbilical hernia without obstruction or gangrene; E78.00 Pure hypercholesterolemia, unspecified; J44.9 Chronic obstructive pulmonary disease, unspecified; F17.210 Nicotine dependence, cigarettes, uncomplicated
CPT/HCPCS: 36415; 71260; 74177; 80053; 81001; 82565; 83605; 83690; 85025; 85610; 85730; 87040; 88302; 88304; 94010; 96361; 96365; 96375; 99285; J1100; J2003; J2250; J2270; J2371; J2405; J2543; J2704; J3010; J7030; J7120; Q9967